=== PATIENT | male | born 1950 | race Caucasian/White ===

== ENCOUNTER → 2017-01-09 | Outpatient (CLI) | payer OTHER ==
[~2017-01-09] MED LIST: ACET-1256 PO; ADVIN50050 INH; ALBUAER INH; ASCO10003 PO; ATOR-24 PO; CLB/200 PO; FERR325T5 PO; GABA-113 PO; HYDR100T12 PO; HYDR8TAB29 PO; METO-217 PO; METO2.5T PO; MULT-506 PO; MYR25 PO; NIFE60TA57 PO; RANI150T3 PO; ROPI2TAB6 PO; RXC5 PO; SERT-234 PO; TADA10TA PO; ZOLP5TAB PO
--- NOTE | 2017-01-09 16:55 | DIAGNOSTIC IMAGING REPORT ---
CHEST 2 VIEWS ROUTINE CLINICAL HISTORY: PRE OP; PT WENT TO LAB FIRST; PLEASE SEND TO [facility] NEXT preoperative evaluation COMPARISON STUDY: None FINDINGS: Platelike atelectasis left base. Lungs otherwise appear clear. Diaphragms smooth. No evidence for cardiac enlargement. IMPRESSION: Platelike atelectasis left base. Otherwise negative study Electronically signed by: Estuardo Hernandez M.D. 01/09/2017 4:54 PM Dictated Date/Time: 01/09/2017 4:53 PM
== END | disposition home or self-care (01) ==
LOC: C.CPL 15:46
PROVIDERS: ATTEND Physician Assistant
DX: M51.26 Other intervertebral disc displacement, lumbar region (principal)

== ENCOUNTER 2017-01-18 07:56 | Inpatient (IN) | payer OTHER ==
[2017-01-03 11:10] VITALS: BMI 40.0
[2017-01-09 16:30] LABS: BASO % 0.3 %; BASO ABS # 0.02 K/uL (0-0.2); COMPLETE YES; EOS % 3.6 %; HEMATOCRIT 43.8 % (42-52); IG% 0.3 %; LYMPH ABS # 1.32 K/uL (1.2-3.4); MEAN CELL VOLUME 85.9 fL (80-100); MEAN CORPUSCULAR HEMOGLOBIN 28.4 pg (25-34); MEAN CORPUSCULAR HGB CONC 33.1 g/dl (32-36); MEAN PLATELET VOLUME 8.9 fL (7.4-10.4); MONO % 13.2 %; NEUT % 63.6 %; PLATELET COUNT 232 K/uL (130-400); WHITE BLOOD COUNT 6.95 K/uL (4.8-10.8)
[2017-01-09 17:04] LABS: BUN/CREATININE RATIO 21.5 (10-20); CALCIUM 10.6 mg/dl (8.5-10.1); CREATININE 0.91 mg/dl (0.60-1.40); POTASSIUM 4.2 mmol/L (3.5-5.1)
[2017-01-09 18:04] LABS: URINE APPEARANCE CLEAR (CLEAR); URINE BILIRUBIN NEG (NEG); URINE COLOR DK YELLOW; URINE NITRITE NEG (NEG); URINE SPECIFIC GRAVITY 1.029 (1.000-1.030); UROBILINOGEN NEG (NEG)
[2017-01-09 18:08] LABS: MANUAL MICROSCOPIC REQUIRED? NO; REVIEW REQ? NO
[~2017-01-18] VITALS: Ht 165.1 cm; Wt 109.1 kg
[2017-01-18] VITALS (9 sets, daily range): BP systolic 115–196; BP diastolic 64–81; PULSE 52–63; TEMP 36.3–36.6; O2SAT 94–97; Ht 165.1 cm; Wt 109.1 kg
--- NOTE | 2017-01-18 07:24 | History & Physical Bridge Note ---
H&P Re-Evaluation Bridge Note: I have examined the patient, reviewed the History & Physical and in the interval since the performance of the History & Physical I have noted the following changes of clinical significance: No changes noted
[~2017-01-18 07:56] MED LIST changes: +CEFAZOLIN 2000 MG/60 ML D5W IV SCH; +LACTATED RINGER'S 1000ML 1,000 ML IV SCH; -RXC5 PO
[2017-01-18] MEDS ORDERED: ROCURONIUM BROMIDE 10 MG/ML 5 ML VIAL ONE ×2 (09:43→11:15)
[2017-01-18] MEDS ORDERED: MIDAZOLAM HCL 1 MG/ML 2ML VIAL ONE (09:43)
[2017-01-18] MEDS ORDERED: PROPOFOL IV EMULSION 10 MG/ML 20 ML VIAL IV ONE (09:43)
[2017-01-18] MEDS ORDERED: LIDOCAINE HCL 2% 2 ML VIAL (20MG/ML) ONE (09:43)
[2017-01-18] MEDS ORDERED: FENTANYL CITRATE INJ 50 MCG/1 ML 2 ML VIAL ONE ×2 (09:43→11:14)
[2017-01-18] MEDS ORDERED: HYDROmorphone INJ 1 MG/ML SYR IV PRN (09:45)
[2017-01-18] MEDS ORDERED: PROMETHAZINE HCL INJ 6.25 MG in SODIUM CHLORIDE 0.9% 50ML 50 ML IV PRN (09:45)
[2017-01-18] MEDS ORDERED: ONDANSETRON INJ 2 MG/ML 2 ML VIAL IV PRN ×2 (09:45→13:15)
[2017-01-18] MEDS ORDERED: EpHEDrine SULFATE INJ 50 MG/ML AMP IV PRN (09:45)
[2017-01-18] MEDS ORDERED: ATROPINE SULFATE 0.1 MG/ML 5ML SYR IV PRN (09:45)
--- NOTE | 2017-01-18 10:00 | History and Physical ---
History & Physical Date January 18, 2017. Chief Complaint back and leg pain History of Present Illness The patient is a 66 year old male with complaints of Additional History Hepatic Disease: No Endocrine Disorder: No Kidney Disease: No Hypertension: No Heart Disease: No Bleeding Tendencies: No Infectious Diseases: No Allergies Coded Allergies: Losartan (Verified Allergy, Mild, RASH, 01/18/17) Lisinopril (Unverified Allergy, Unknown, UNKNOWN, 01/18/17) Home Medications Scheduled Acetaminophen (Tylenol), 500 MG PO QID Ascorbic Acid (Vitamin C), 1 TAB PO QAM Atorvastatin (Lipitor), 40 MG PO QPM Celecoxib (CeleBREX), 200 MG PO QPM Ferrous Sulfate (Ferrous Sulfate), 1 TAB PO UD Fluticasone Prop/Salmeterol (Advair Diskus 500-50 Mcg/Dose), 1 PUFF INH BID Gabapentin (Neurontin), 300 MG PO TID Hydralazine Hcl (Apresoline), 100 MG PO QAM Hydromorphone Hcl (Dilaudid), 1 TAB PO QID Metoprolol Succinate (Toprol Xl), 50 MG PO HS Mirabegron (Myrbetriq Er), 25 MG PO QAM Multivitamin (Multivitamin), 1 TAB PO QAM Nifedipine Ext Rel (Procardia Xl Ext Rel), 60 MG PO QAM Ranitidine Hcl (Zantac), 150 MG PO HS Ropinirole (Requip), 1 MG PO TID Sertraline (Zoloft), 150 MG PO QAM Tadalafil (Cialis), 10 MG PO UD Scheduled PRN Albuterol (Proventil Hfa), 2 PUFFS INH Q4 PRN for Shortness of Breath Metolazone (Zaroxolyn), 2.5 MG PO MON, WED, FRI PRN for EDEMA Zolpidem Tartrate (Ambien), 1 TAB PO HS PRN for Sleep Physical Examination Skin: warm/dry, no rash Eyes: normal inspection, EOMI, sclerae normal ENT: normal ENT inspection, pharynx normal Head: normocephalic, atraumatic Neck: supple, no adenopathy, trachea midline Respiratory/Chest: lungs clear, normal breath sounds, no respiratory distress Cardiovascular: regular rate, rhythm, no edema, no murmur Abdomen / GI: normal bowel sounds, non tender Back: normal inspection Extremities: normal inspection, normal range of motion Neurologic/Psych: no motor/sensory deficits, alert, normal reflexes, oriented x 3 Diagnosis lumbar stenosis Plan of Treatment decompression fusion L3-L5
[2017-01-18] MEDS ORDERED: BUPIVACAINE/EPINEPHRINE 0.5% MPF 1:200,000 30 ML VIAL ONE (10:24)
[2017-01-18] MEDS ORDERED: BACITRACIN 50000 UNIT VIAL ONE (10:24)
[2017-01-18] MEDS ORDERED: METOPROLOL TARTRATE 100 MG TAB PO ONE (10:30)
[2017-01-18] MEDS ORDERED: DEXAMETHASONE SOD INJ 4 MG/ML VIAL ONE (11:15)
[2017-01-18] MEDS ORDERED: GLYCOPYRROLATE INJ 0.2 MG/ML VIAL ONE (11:15)
[2017-01-18] MEDS ORDERED: NEOSTIGMINE METHYLSULFATE 1 MG/ML 10ML VIAL ONE (11:15)
[2017-01-18] MEDS ORDERED: ONDANSETRON INJ 2 MG/ML 2 ML VIAL ONE (11:15)
[2017-01-18] MEDS ORDERED: FLOSEAL HEMOSTATIC MATRIX 10ML TOP ONE (12:57)
[2017-01-18] MEDS ORDERED: SODIUM CHLORIDE 0.9% 1000ML 1,000 ML IV SCH (13:03)
--- NOTE | 2017-01-18 13:03 | DIAGNOSTIC IMAGING REPORT ---
INTRAOPERATIVE LUMBAR SPINE 2 VIEWS CLINICAL HISTORY: L3-L5 LUMBAR DECOMPRESSION/FUSION/INTERBODY COMPARISON STUDY: No previous studies for comparison. FINDINGS: 2 intraoperative fluoroscopic spot views are provided for interpretation. 24 seconds of fluoroscopic time was utilized. 2 images reveal pedicle screws the L3, L4, and L5 levels with adjoining spinal rods. IMPRESSION: L3-L5 posterior pedicle screw spinal fixation. Electronically signed by: Clark Dunham M.D. 01/18/2017 1:02 PM Dictated Date/Time: 01/18/2017 1:01 PM
--- NOTE | 2017-01-18 13:03 | [facility] Post Operative Brief Note ---
Immediate Operative Summary Operative Date January 18, 2017. Pre-Operative Diagnosis Lumbar Stenosis Post-Operative Diagnosis Lumbar Stenosis Procedure(s) Performed L3-L5 Lumbar Laminectomy and Decompression, Posterior Spinal Fusion L3-L5, Bone Morphogenetic Protein;[facility] of [place] Surgeon Dr. Almaraz Dairy Technologist Surgeon(s) Lise Dugan PA-C Estimated Blood Loss 800 mL Findings stenosis Specimens None per Surgeon
[2017-01-18] MEDS ORDERED: EpHEDrine SULFATE INJ 50 MG/ML AMP ONE (13:07)
[2017-01-18] MEDS ORDERED: EpHEDrine SULFATE 50MG/5ML SYR ONE (13:07)
[2017-01-18] MEDS ORDERED: HYDROmorphone INJ 2 MG/ML SYR/VIAL ONE (13:10)
[2017-01-18] MEDS ORDERED: ACETAMINOPHEN 500 MG TAB PO PRN (13:15)
[2017-01-18] MEDS ORDERED: METOCLOPRAMIDE HCL INJ 5 MG/ML 2 ML VIAL IV PRN (13:15)
[2017-01-18] MEDS ORDERED: PROMETHAZINE HCL INJ 12.5 MG in SODIUM CHLORIDE 0.9% 50ML 50 ML IV PRN (13:15)
[2017-01-18] MEDS ORDERED: NALOXONE HCL 0.4 MG/1 ML VIAL/CARP IV PRN ×2 (13:15)
[2017-01-18] MEDS ORDERED: hydrOXYzine HCL 25 MG TAB PO PRN (13:15)
[2017-01-18] MEDS ORDERED: ALUMINUM/MAGNESIUM SUSP 30 ML UDC PO PRN (13:15)
[2017-01-18] MEDS ORDERED: ALBUTEROL HFA 8 GM INHALER INH PRN (13:15)
[2017-01-18] MEDS ORDERED: SOD PHOSPHATE/SOD BIPHOSPHATE ENEMA 132 ML BTL PR PRN (13:15)
[2017-01-18] MEDS ORDERED: LORAZEPAM 0.5 MG TAB PO PRN (13:15)
[2017-01-18] MEDS ORDERED: MAGNESIUM HYDROXIDE SUSP 30 ML UDC PO PRN (13:15)
[2017-01-18] MEDS ORDERED: ZOLPIDEM TARTRATE 5 MG TAB PO PRN (13:15)
[2017-01-18] MEDS ORDERED: DC PCA PRN (13:15)
[2017-01-18] MEDS ORDERED: DO NOT ADMINISTER FLU VACCINE PRN ×3 (13:15)
[2017-01-18] MEDS ORDERED: ACETAMINOPHEN IV 100 ML IV PRN (13:15)
[2017-01-18] MEDS ORDERED: BISACODYL 10 MG SUPP PR PRN (13:15)
[2017-01-18] MEDS ORDERED: DO NOT ADMINISTER PNEUMOCOCCAL VACCINE PRN ×2 (13:15)
[2017-01-18] MEDS ORDERED: FAMOTIDINE 20 MG TAB PO PRN (13:15)
[2017-01-18] MEDS ORDERED: LORAZEPAM INJ 0.5 MG in SYRINGE 0 ML IV PRN (13:15)
[2017-01-18] MEDS ORDERED: HYDROmorphone HCL 0.5MG/ML 50 ML CASSETTE ONE (13:29)
[2017-01-18] MEDS: FENTANYL CITRATE INJ 50 MCG/1 ML 2 ML VIAL IV PRN ×4 (13:35→13:50)
--- NOTE | 2017-01-18 14:15 | Anesthesiology Progress Note ---
Anesthesia Post Op Note Date & Time January 18, 2017 at 14:15 Vital Signs Pain Intensity: 6 Vital Signs Past 12 Hours Date Time Temp Pulse Resp B/P Pulse Ox O2 Delivery O2 Flow Rate FiO2 01/18/17 14:05 36.5 50 14 135/70 92 Nasal Cannula 4 01/18/17 13:55 52 17 150/66 96 Nasal Cannula 4 01/18/17 13:45 54 16 148/82 97 Mask 10 01/18/17 13:35 67 17 155/77 97 Mask 10 01/18/17 13:25 37.1 62 22 159/80 97 Mask 10 01/18/17 08:26 36.6 63 20 196/81 95 Room Air Notes Mental Status: alert / awake / arousable, participated in evaluation Pt Amnestic to Procedure: Yes Nausea / Vomiting: adequately controlled Pain: adequately controlled Airway Patency, RR, SpO2: stable & adequate BP & HR: stable & adequate Hydration State: stable & adequate Anesthetic Complications: no major complications apparent
--- NOTE | 2017-01-18 15:22 | OPERATIVE REPORT ---
DATE OF OPERATION: 01/18/2017 PREOPERATIVE DIAGNOSIS: Spinal stenosis, herniated nucleus pulposus. POSTOPERATIVE DIAGNOSIS: Same. PROCEDURE PERFORMED: 1. Lumbar decompression, medial facetectomy, excision of herniated fragment L2-L3, L3-L4, L4-L5. 2. Posterior spinal fusion L3-L4, L4-L5. 3. Placement posterior segmental instrumentation using Orthros rods and screws as well as a crosslink L3-L4, L4-L5. 4. Placement of locally harvested morselized autograft posterior gutters. 5. Placement of Infuse collagen sponge combined with Mastergraft in posterior gutters. SURGEON: Dr. Cisco Almaraz. SENIOR MORTGAGE UNDERWRITER: Lise Dugan PA-C. Due to the complex nature of the procedure, the entire surgery was performed with the prosthetic assistant of Lise Dugan PA-C. The merchandising assistant, under direct supervision, was involved in the actual performance of all aspects of the surgical procedure including hemostasis, tissue retraction and incision, instrument management, patient positioning, and wound closure. ANESTHESIA: General. DISPOSITION: The patient awakened and taken to PACU in stable condition. HISTORY OF PATIENT'S PROBLEMS: A 66-year-old male who presents with above-mentioned diagnosis. After failing an extensive course of nonoperative care, elected to undergo the above-mentioned procedure. Risks, benefits, pros, cons, and alternatives were outlined in detail preoperatively. OPERATION AND FINDINGS: PROCEDURE: The patient was met with preoperatively, the case discussed and all questions were addressed. At that point the patient was taken back to the operative suite and after undergoing successful general intubation by the department of anesthesia was placed in prone position on Ahmet table atop Manuel frame. All bony prominences were well padded and the eyes were inspected to ensure there was no external pressure placed upon them. At this point, lumbar spine was prepped and draped in the normal sterile fashion. Sharp dissection with the assistance of Bovie cautery performed down to and exposing the lamina and transverse processes of L3, L4, L5 bilaterally. From a caudal to cephalad fashion, complete laminectomy of L4, 3 partial laminectomy of L2 was performed addressing severe lateral recess stenosis as well as a massive disc herniation involving the foramina of L3-L4 on the left and extending cephalad. After the fragments were removed and decompression was performed, pedicle screws were then placed in L3, L4, L5 bilaterally with assistance of fluoroscopy and appropriate size cee locked into position. A crosslink was locked into position. Transverse processes of L3, L4, L5 burred to subcortical bleeding bone. Infuse collagen sponge combined with Mastergraft and locally harvested morselized autograft was placed in the posterior gutters. A 7 flat ROCKY drain was inserted. Incision was closed with 1-0 Vicryl in the fascia, 2-0 Vicryl subcutaneously, 4-0 Monocryl for final skin closure. Steri-Strips and sterile dressing placed. The patient was awakened and taken to PACU in stable condition. I attest to the content of the Intraoperative Record and any orders documented therein. Any exceptio ns are noted below.
[2017-01-18] MEDS: HYDROmorphone HCL 0.5MG/ML 50 ML CASSETTE IV PRN ×2 (15:54→22:58)
[2017-01-18] MEDS: GABAPENTIN 300 MG CAP PO SCH ×2 (17:12→22:01)
[2017-01-18] MEDS: ROPINIROLE HCL 1 MG TAB PO SCH ×2 (17:12→22:00)
[2017-01-18] MEDS: DEXAMETHASONE INJ 6 MG in SYRINGE 0 ML IV SCH (17:13)
[2017-01-18] MEDS: SODIUM CHLORIDE 0.9% 1000ML 1,000 ML IV SCH ×2 (17:18→21:55)
[2017-01-18] MEDS: CEFAZOLIN IV 2,000 MG in DEXTROSE 5% 50ML 50 ML IV SCH (17:22)
[2017-01-18] MEDS: METOPROLOL SUCC 50MG EXT REL TAB PO SCH (21:00)
[2017-01-18] MEDS: FLUTICASONE/SALMETEROL (ADVAIR) 500/50 INH 14 PUFF INH SCH (21:55)
[2017-01-18] MEDS: RANITIDINE HCL 150 MG TAB PO SCH (22:00)
[2017-01-18] MEDS: DOCUSATE SODIUM/SENNA 50/8.6MG TAB PO SCH (22:00)
[2017-01-18] MEDS: ATORVASTATIN 40 MG TAB PO SCH (22:01)
[2017-01-19] VITALS (7 sets, daily range): BP systolic 107–172; BP diastolic 56–78; PULSE 60–79; TEMP 36.5–37; O2SAT 91–96
[2017-01-19] MEDS: DEXAMETHASONE INJ 6 MG in SYRINGE 0 ML IV SCH ×2 (01:07→08:34)
[2017-01-19] MEDS: CEFAZOLIN IV 2,000 MG in DEXTROSE 5% 50ML 50 ML IV SCH (02:09)
[2017-01-19] MEDS ORDERED: NURSING VERBAL MED ORDER ONE (06:15)
[2017-01-19 06:16] LABS: COMPLETE YES; HEMATOCRIT 33.9 % (42-52); IG% 0.2 %; LYMPH % 4.6 %; LYMPH ABS # 0.58 K/uL (1.2-3.4); MEAN CELL VOLUME 86.9 fL (80-100); MEAN CORPUSCULAR HEMOGLOBIN 27.9 pg (25-34); MEAN CORPUSCULAR HGB CONC 32.2 g/dl (32-36); MONO % 10.2 %; PLATELET COUNT 198 K/uL (130-400); WHITE BLOOD COUNT 12.52 K/uL (4.8-10.8)
[2017-01-19 06:47] LABS: BUN/CREATININE RATIO 18.5 (10-20); CREATININE 1.1 mg/dl (0.60-1.40); POTASSIUM 4.3 mmol/L (3.5-5.1)
[2017-01-19] MEDS: OXYCODONE HCL IR 5 MG TAB (IMMEDIATE RELEASE) PO PRN ×4 (07:13→22:43)
--- NOTE | 2017-01-19 08:12 | PROGRESS NOTE ---
DATE: 01/19/2017 DATE: 01/19/2017. SUBJECTIVE: Postop day #1. Back pain controlled. Leg pain markedly improved. Vital signs stable. T-max 36.6. ROCKY drained 130 mL. Hematocrit this a.m. is 33.9. OBJECTIVE: On exam, he has good strength to testing, ambulating well, markedly improved. ASSESSMENT: Status post lumbar decompression and fusion. PLAN: At this time, will continue with physical therapy, advance his bowel regimen and hopefully discharge home in the next few days.
--- NOTE | 2017-01-19 08:16 | Anesthesiology Progress Note ---
Anesthesia Post Op Note Date & Time January 19, 2017 at 08:16 Vital Signs Pain Intensity: 6.0 Vital Signs Past 12 Hours Date Time Temp Pulse Resp B/P Pulse Ox O2 Delivery O2 Flow Rate FiO2 01/19/17 07:00 36.6 61 16 107/58 94 Room Air 01/19/17 03:48 36.6 65 17 147/72 94 Nasal Cannula 2.0 01/19/17 00:23 Nasal Cannula 01/18/17 23:07 36.4 61 16 129/68 94 Nasal Cannula 2.0 01/18/17 21:58 58 126/70 Notes Mental Status: alert / awake / arousable, participated in evaluation Pt Amnestic to Procedure: Yes Nausea / Vomiting: adequately controlled Pain: adequately controlled Airway Patency, RR, SpO2: stable & adequate BP & HR: stable & adequate Hydration State: stable & adequate Anesthetic Complications: no major complications apparent
[2017-01-19] MEDS: SERTRALINE HCL 100 MG TAB PO SCH (08:33)
[2017-01-19] MEDS: ROPINIROLE HCL 1 MG TAB PO SCH ×3 (08:34→20:55)
[2017-01-19] MEDS: FLUTICASONE/SALMETEROL (ADVAIR) 500/50 INH 14 PUFF INH SCH ×2 (08:34→20:55)
[2017-01-19] MEDS: NIFEdipine 30 MG CR TAB PO SCH (08:35)
[2017-01-19] MEDS: GABAPENTIN 300 MG CAP PO SCH ×3 (08:35→20:55)
[2017-01-19] MEDS: MIRABEGRON ER 25 MG TAB PO SCH (08:35)
[2017-01-19] MEDS: HYDROmorphone INJ 1 MG/ML SYR IV PRN ×2 (10:39→18:39)
--- NOTE | 2017-01-19 10:43 | Medical Consult ---
Consultation Date of Consultation: January 19, 2017. Attending Physician: Cisco Almaraz D.O. Reason for Consultation: postop medical management History of Present Illness Patient seen and examined in room 316 after undergoing lumbar decompression/ fusion yesterday by Dr. Almaraz. Back pain is controlled. He reports feeling better than he has in years. Has ambulated in the hallway with nursing and participated in PT. Tolerating diet without issues. No BM yet after surgery. Mendez catheter remains in place. Denies fever, chills, dizziness, cough, SOB, chest pain, abdominal pain, N/V, LE pain, numbness, weakness. Past Medical/Surgical History Medical Problems: (1) ? Hx [place] Permanent Comment: age 48 per patient, in relation to GIB, no cath done. 2007 stress echo negative. Status: Chronic (2) ? Hx TIA/stroke w/o residual deficit Permanent Comment: approximately 2006 per per patient Status: Chronic (3) Asthma Status: Chronic (4) Depression Status: Chronic (5) Diverticulosis Status: Chronic (6) Dyslipidemia Status: Chronic (7) Hypertension Status: Chronic (8) Valvular heart disease Permanent Comment: 01/2008 echo- LV EF 55-60%, LVH, minimal , mild AI, mild MR , mild TR Status: Chronic Surgical Problems: (1) H/O colonoscopy Permanent Comment: 11/2015 diverticulosis Status: Chronic Family History FH: CVA (cerebrovascular accident) MOTHER Social History Smoking Status: Never Smoker Alcohol Use: none Drug Use: none Marital Status: Housing Status: lives with significant other 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) Allergies Coded Allergies: Losartan (Verified Allergy, Mild, RASH, 01/18/17) Lisinopril (Unverified Allergy, Unknown, UNKNOWN, 01/18/17) Home Medications Active Reported Neurontin (Gabapentin) 300 Mg Cap 300 Mg PO TID Myrbetriq Er (Mirabegron) 25 Mg Tab 25 Mg PO QAM Toprol Xl (Metoprolol Succinate) 50 Mg Tabcr 50 Mg PO HS Apresoline (Hydralazine Hcl) 100 Mg Tab 100 Mg PO QAM Tylenol (Acetaminophen) 500 Mg Tab 500 Mg PO QID Dilaudid (Hydromorphone Hcl) 8 Mg Tab 1 Tab PO QID Zoloft (Sertraline HCl) 100 Mg Tab 150 Mg PO QAM CeleBREX (Celecoxib) 200 Mg Cap 200 Mg PO QPM Ferrous Sulfate 325 Mg Tab 1 Tab PO UD Multivitamin (Multivitamins) Tab 1 Tab PO QAM Vitamin C (Ascorbic Acid) 1,000 Mg Tab 1 Tab PO QAM Zaroxolyn (Metolazone) 2.5 Mg Tab 2.5 Mg PO MON, WED, FRI Lipitor (Atorvastatin Calcium) 40 Mg Tab 40 Mg PO QPM Zantac (Ranitidine HCl) 150 Mg Tab 150 Mg PO HS Cialis (Tadalafil) 10 Mg Tab 10 Mg PO UD Procardia Xl Ext Rel (Nifedipine) 60 Mg Tabcr 60 Mg PO QAM Requip (Ropinirole HCl) 2 Mg Tab 1 Mg PO TID Proventil Hfa (Albuterol) Aers 2 Puffs INH Q4 PRN Ambien (Zolpidem Tartrate) 5 Mg Tab 1 Tab PO HS PRN Advair Diskus 500-50 Mcg/Dose (Fluticasone Prop/Salmeterol) 14 Puff/1 Inhaler Aerp 1 Puff INH BID Current Inpatient Medications Current Inpatient Medications Medications (Trade) Dose Ordered Sig/Skyla Route Start Time Stop Time Status Last Admin Dose Admin Promethazine HCl/ Sodium Chloride (Phenergan Inj/ Nss 50ml) 50.5 ml @ 202 mls/hr Q6H PRN IV 01/18/17 13:15 02/17/17 13:14 Ondansetron HCl (Zofran Inj) 4 mg Q6H PRN IV 01/18/17 13:15 02/17/17 13:14 Metoclopramide HCl (Reglan Inj) 10 mg Q6H PRN IV 01/18/17 13:15 02/17/17 13:14 Lorazepam 0.5 mg 0.5 mg Q8H PRN PO 01/18/17 13:15 02/17/17 13:14 Lorazepam/Syringe (Ativan Inj/ Syringe) 0.25 ml @ 1 mls/min Q8H PRN IV 01/18/17 13:15 02/17/17 13:14 Pneumococcal Polysaccharide Vaccine 1 ea PRN PRN N/A 01/18/17 13:15 02/17/17 13:14 Influenza Virus Vacc Triv Types A&B 1 ea PRN PRN N/A 01/18/17 13:15 02/17/17 13:14 Polyethylene (Miralax Powder Packet) 17 gm Q6 PO 01/20/17 06:00 02/19/17 05:59 Bisacodyl (Dulcolax Supp) 10 mg DAILY PRN ND 01/18/17 13:15 02/17/17 13:14 Magnesium Hydroxide (Milk Of Magnesia Susp) 30 ml DAILY PRN PO 01/18/17 13:15 02/17/17 13:14 Hydromorphone HCl (Dilaudid Inj) 0.5-1mg prn moder... Q3H PRN IV 01/19/17 06:00 02/02/17 05:59 Oxycodone HCl (Roxicodone Immediate Rel Tab) 5-10mg prn moderate to sev... Q4H PRN PO 01/19/17 06:00 02/02/17 05:59 01/19/17 07:13 10 MG Acetaminophen 1000 mg 1,000 mg Q8H PRN PO 01/18/17 13:15 02/17/17 13:14 Acetaminophen (Ofirmev Iv) 100 ml @ 400 mls/hr Q8H PRN IV 01/18/17 13:15 02/17/17 13:14 Naloxone HCl (Narcan Inj) 0.1 mg Q5M PRN IV 01/18/17 13:15 02/17/17 13:14 Senna/Docusate Sodium (Senokot S Tab) 2 tab HS PO 01/18/17 21:00 02/17/17 20:59 01/18/17 22:00 2 TAB Sodium Biphosphate/ Sodium Phosphate (Fleet Enema) 132 ml ONE PRN ND 01/18/17 13:15 02/17/17 13:14 Hydroxyzine HCl (Vistaril Tab) 25 mg Q8H PRN PO 01/18/17 13:15 02/17/17 13:14 Al Hydroxide/Mg Hydroxide (Maalox Susp) 30 ml Q6H PRN PO 01/18/17 13:15 02/17/17 13:14 Famotidine (Pepcid Tab) 20 mg Q12 PRN PO 01/18/17 13:15 02/17/17 13:14 Diphenhydramine HCl (Benadryl Cap) 25 mg Q6H PRN PO 01/18/17 13:15 02/17/17 13:14 Albuterol (Ventolin Hfa Inhaler) 2 puffs Q4 PRN INH 01/18/17 13:15 02/17/17 13:14 Atorvastatin Calcium (Lipitor Tab) 40 mg QPM PO 01/18/17 21:00 02/17/17 20:59 01/18/17 22:01 40 MG Salmeterol Xinafoate/ Fluticasone (Advair Diskus 500/50 Inh) 1 puff BID INH 01/18/17 21:00 02/17/17 20:59 01/19/17 08:34 1 PUFF Gabapentin (Neurontin Cap) 300 mg TID PO 01/18/17 14:00 02/17/17 13:59 01/19/17 08:35 300 MG Hydralazine HCl (Apresoline Tab) 100 mg QAM PO 01/19/17 09:00 02/18/17 08:59 01/19/17 08:35 100 MG Metoprolol Succinate (Toprol Xl Tab) 50 mg HS PO 01/18/17 21:00 02/17/17 20:59 Mirabegron (Myrbetriq Er) 25 mg QAM PO 01/19/17 09:00 02/18/17 08:59 01/19/17 08:35 25 MG Nifedipine (Procardia Xl Tab) 60 mg QAM PO 01/19/17 09:00 02/18/17 08:59 01/19/17 08:35 60 MG Ranitidine HCl (zANTac TAB) 150 mg HS PO 01/18/17 21:00 02/17/17 20:59 01/18/17 22:00 150 MG Ropinirole HCl (Requip Tab) 1 mg TID PO 01/18/17 14:00 02/17/17 13:59 01/19/17 08:34 1 MG Sertraline HCl (Zoloft Tab) 150 mg QAM PO 01/19/17 09:00 02/18/17 08:59 01/19/17 08:33 150 MG Zolpidem Tartrate (Ambien Tab) 5 mg HS PRN PO 01/18/17 13:15 02/17/17 13:14 Review of Systems Ten systems reviewed and negative except as noted in HPI. Physical Exam Date Time Temp Pulse Resp B/P Pulse Ox O2 Delivery O2 Flow Rate FiO2 01/19/17 08:35 60 145/72 01/19/17 07:13 Room Air 01/19/17 07:00 36.6 61 16 107/58 94 Room Air 01/19/17 03:48 36.6 65 17 147/72 94 Nasal Cannula 2.0 01/19/17 00:23 Nasal Cannula 01/18/17 23:07 36.4 61 16 129/68 94 Nasal Cannula 2.0 01/18/17 21:58 58 126/70 01/18/17 19:28 36.4 57 18 131/76 96 Nasal Cannula 2.0 01/18/17 18:40 36.6 55 20 115/64 95 Nasal Cannula 2.0 01/18/17 16:58 36.3 52 18 130/73 95 Nasal Cannula 4.0 01/18/17 16:29 36.5 55 18 140/72 97 Nasal Cannula 4.0 01/18/17 16:00 96 Nasal Cannula 2.0 01/18/17 16:00 96 Nasal Cannula 2.0 01/18/17 15:52 36.4 59 16 153/69 96 Nasal Cannula 2.0 01/18/17 15:45 57 20 163/67 96 Nasal Cannula 4 01/18/17 15:30 53 18 164/72 95 Nasal Cannula 4 01/18/17 15:15 53 10 165/72 96 Nasal Cannula 4 01/18/17 15:00 52 10 163/77 96 Nasal Cannula 4 01/18/17 14:45 52 22 146/70 95 Nasal Cannula 4 01/18/17 14:30 48 10 129/62 96 Nasal Cannula 4 01/18/17 14:15 48 10 129/64 95 Nasal Cannula 4 01/18/17 14:05 36.5 50 14 135/70 92 Nasal Cannula 4 01/18/17 13:55 52 17 150/66 96 Nasal Cannula 4 01/18/17 13:45 54 16 148/82 97 Mask 10 01/18/17 13:35 67 17 155/77 97 Mask 10 01/18/17 13:25 37.1 62 22 159/80 97 Mask 10 General Appearance: WD/WN, no apparent distress Head: normocephalic, atraumatic Eyes: normal inspection, sclerae normal ENT: normal ENT inspection, + pertinent finding (right side hearing aid) Neck: supple, trachea midline Respiratory/Chest: lungs clear, normal breath sounds, no respiratory distress, no accessory muscle use Cardiovascular: regular rate, rhythm, + systolic murmur (grade II at RSB) Abdomen/GI: normal bowel sounds, non tender, soft Genitourinary - Male: + pertinent finding (mendez catheter draining clear yellow urine) Back: + pertinent finding (s/p lumbar decompression/ fusion. drain in place with sanguinous drainage) Extremities/Musculoskelatal: no calf tenderness, no pedal edema Neurologic/Psych: alert, normal mood/affect, oriented x 3, + pertinent finding (no focal deficit on gross examination) Skin: normal color, warm/dry Laboratory Results Last 24 Hours Test 01/19/17 05:28 White Blood Count 12.52 K/uL Red Blood Count 3.90 M/uL Hemoglobin 10.9 g/dL Hematocrit 33.9 % Mean Corpuscular Volume 86.9 fL Mean Corpuscular Hemoglobin 27.9 pg Mean Corpuscular Hemoglobin Concent 32.2 g/dl Platelet Count 198 K/uL Mean Platelet Volume 9.0 fL Neutrophils (%) (Auto) 85.0 % Lymphocytes (%) (Auto) 4.6 % Monocytes (%) (Auto) 10.2 % Eosinophils (%) (Auto) 0.0 % Basophils (%) (Auto) 0.0 % Neutrophils # (Auto) 10.63 K/uL Lymphocytes # (Auto) 0.58 K/uL Monocytes # (Auto) 1.28 K/uL Eosinophils # (Auto) 0.00 K/uL Basophils # (Auto) 0.00 K/uL RDW Standard Deviation 45.4 fL RDW Coefficient of Variation 14.2 % Immature Granulocyte % (Auto) 0.2 % Immature Granulocyte # (Auto) 0.03 K/uL Sodium Level 139 mmol/L Potassium Level 4.3 mmol/L Chloride Level 103 mmol/L Carbon Dioxide Level 28 mmol/L Anion Gap 8.0 mmol/L Blood Urea Nitrogen 20 mg/dl Creatinine 1.10 mg/dl Est Creatinine Clear Calc Drug Dose 76.3 ml/min Estimated GFR () 81.2 Estimated GFR (Non- 70.1 BUN/Creatinine Ratio 18.5 Random Glucose 159 mg/dl Calcium Level 9.0 mg/dl Assessment & Plan S/P LUMBAR DECOMPRESSION/ FUSION POD #[address] Almaraz Doing well postoperatively Pain control, wound care, activity per ortho Bowel regimen per ortho- on Senokot, Miralax to start tomorrow am, PRN dulcolax suppository PT/ OT ACUTE BLOOD LOSS ANEMIA Hg 14.5 -> 10.9 Due to surgical blood loss; EBL 800 mL Asymptomatic Monitor daily H/H Would transfuse for Hg < 8 HYPERTENSION BP is stable Continue hydralazine, metoprolol succinate, nifedipine Agree with holding metolazone to prevent dehydration ASTHMA Stable, not in exacerbation Continue home inhalers DYSLIPIDEMIA Continue statin DEPRESSION Stable, continue Zoloft DVT PROPHYLAXIS Per ortho DISPOSITION Per ortho Patient follows with Dr. Dawkins for primary care Patient seen in collaboration with Dr. Mars. Please see her addendum.
--- NOTE | 2017-01-19 13:13 | Progress Note ---
Progress Note Date of Service January 19, 2017. Progress Note Patient was seen and evaluated with NEETU Nathan. Patient is status post lumbar decompression. Patient s pain is controlled. He is ambulating with PT too. Denies any chest pain, fever, chills, nausea, vomiting. EXAM: Gen: AAOX3, no distress Lungs: AEBE, no wheezing, rhonchi Heart: S1, S2 normal, Back: S/P Surgery, Drain + Ext: No edema ASSESSMENT AND PLAN S/P LUMBAR DECOMPRESSION/ FUSION POD #[address] Almaraz Doing well postoperatively -Pain control, wound care, activity per ortho -Bowel regimen per ortho- on Senokot, Miralax to start tomorrow am, PRN dulcolax suppository -PT/ OT ACUTE BLOOD LOSS ANEMIA, Post operative status Hg 14.5 -> 10.9 -Due to surgical blood loss; EBL 800 mL -Asymptomatic -Monitor daily H/H -Would transfuse for Hg < 8 HYPERTENSION BP is stable -Continue hydralazine, metoprolol succinate, nifedipine -Agree with holding metolazone to prevent dehydration ASTHMA Stable, not in exacerbation -Continue home inhalers DYSLIPIDEMIA -Continue statin DEPRESSION -Stable, continue Zoloft DVT PROPHYLAXIS -Per ortho DISPOSITION Per ortho Patient follows with Dr. Dawkins for primary care
[2017-01-19] MEDS: METOPROLOL SUCC 50MG EXT REL TAB PO SCH (20:55)
[2017-01-19] MEDS: ATORVASTATIN 40 MG TAB PO SCH (21:33)
[2017-01-19] MEDS: RANITIDINE HCL 150 MG TAB PO SCH (21:33)
[2017-01-19] MEDS: DOCUSATE SODIUM/SENNA 50/8.6MG TAB PO SCH (21:33)
[2017-01-20] MEDS: OXYCODONE HCL IR 5 MG TAB (IMMEDIATE RELEASE) PO PRN ×5 (02:50→21:03)
[2017-01-20] MEDS ORDERED: POLYETHYLENE (MIRALAX) 17 GM PACK PO SCH (06:00)
[2017-01-20] MEDS ORDERED: NURSING VERBAL MED ORDER ONE (06:15)
[2017-01-20 06:32] VITALS: BP 154/66; PULSE 60; TEMP 36.6; O2SAT 94
[2017-01-20 06:59] VITALS: BP 148/65; PULSE 58; TEMP 36.7; O2SAT 93
[2017-01-20] MEDS: SERTRALINE HCL 100 MG TAB PO SCH (07:18)
[2017-01-20] MEDS: NIFEdipine 30 MG CR TAB PO SCH (07:19)
[2017-01-20] MEDS: GABAPENTIN 300 MG CAP PO SCH ×3 (07:19→21:03)
[2017-01-20] MEDS: ROPINIROLE HCL 1 MG TAB PO SCH ×3 (07:19→21:03)
[2017-01-20] MEDS: MIRABEGRON ER 25 MG TAB PO SCH (07:19)
[2017-01-20] MEDS: FLUTICASONE/SALMETEROL (ADVAIR) 500/50 INH 14 PUFF INH SCH ×2 (07:20→20:55)
[2017-01-20 08:42] VITALS: BP 160/71; O2SAT 95
[2017-01-20] MEDS ORDERED: RXC5 PO (09:39)
--- NOTE | 2017-01-20 09:40 | Discharge Instructions ---
Discharge Instructions Date of Service January 20, 2017. Admission Reason for Admission: Lumbar Spinal Stenosis Discharge Discharge Diagnosis / Problem: stenosis Discharge Goals Goal(s): Improve function Activity Recommendations Activity Limitations: per Instructions/Follow-up section . Instructions / Follow-Up Instructions / Follow-Up ACTIVITY RECOMMENDATIONS: SELF CARE INSTRUCTIONS AFTER THORACIC/LUMBAR FUSIONS 1. You may walk to your tolerance. It is good exercise for your legs and back. Expect some back and intermittent leg aches and pains. 2. You may perform "counter-top" level activities (make a sandwich, olga with a project, etc.). 3. No bending or lifting of more than 10 pounds or back twisting of any nature (roll like a log when turning in bed). 4. You may ride in a car for 20-30 minutes at a time. No driving until after your first visit with your doctor. 5. Frequent changes of position and restricting sitting to 30 minutes at a time will help limit the amount of back spasms and stiffness you may experience. 6. You may discontinue the use of ambulatory aids (cane, crutches, etc.) once your strength and confidence allow. 7. You may rules examiner the shower and let water strike your incision when you arrive home at least once daily. Do not take a tub bath, sit in a hot tub or go into a swimming pool until after your first recheck in the office. SPECIAL CARE INSTRUCTIONS: VERY IMPORTANT TO READ AND REVIEW A. Your surgical incision has been closed with a cosmetic suture under the skin that will dissolve in about 6 weeks. In 14 days, you can use a pair of clean scissors and cut the suture that is left outside of the skin at the ends of your incision. 1. The small skin tapes can be removed 7 days after surgery if they have not fallen off by that point. 2. You may keep the wound open to air as much as possible to promote healing after post-op day number 5 unless told otherwise by your doctor. 3. If you think the wound looks like it is becoming infected (redness or worsening drainage) and/or you are experiencing fever, chill or worsening back pain and muscle spasms, contact the office so that we may evaluate you as soon as possible. B. Complications are uncommon, but please contact us if you have any signs or symptoms of: 1. wound infection (fever higher than 102.5 degrees F, redness, separation of wound, drainage, or increasing pain from the incision) 2. blood clots in legs (pain, swelling, redness and warmth in legs) 3. urinary tract infection (fever higher than 102.5 degrees F, burning upon urination or increased frequency of urination) 4. nerve problems (inability to walk on your toes or heels, numbness, loss of bowel or bladder control) 5. any other symptoms that concern you C. Please call the office at if you have any concerns or questions about your operation or recovery. D. No smoking! Smoking drastically decreases the chance of a solid fusion. E. Do not take any anti-inflammatory medications (Indocin, Advil, Motrin, Aspirin, Naprosyn, etc.) as these may inhibit the chance of a solid fusion. Tylenol is okay to take for pain. MANAGING PAIN AFTER SPINAL SURGERY 1. Narcotic medication is intended for short-term use and will be provided for surgical pain. Surgical pain usually lasts for a period of 4-6 weeks. Narcotic medication includes Percocet, Vicodin, Darvocet, Tylenol #3 or Lortab. 2. Longer-term pain is more appropriately treated with non-narcotic medication such as Tylenol ES. 3. Muscle spasm is not appropriately treated with narcotics. Muscle relaxers such as Soma, Flexeril or Skelaxin can be used along with Tylenol ES. 4. Remember that we all live with some "aches and pains". This is not unusual or uncommon after an injury or as we get older. a. Back pain is expected and may include muscle spasms for 4 to 6 weeks after surgery. The pain should gradually improve. If the pain worsens for no apparent reason, please contact the office. b. Intermittent leg pain may also be experienced and should not be concerned about unless it worsens for no apparent reason. If so, please contact the office. 5. We will provide appropriate medication within the normal guidelines of their prescribed use. We will also be very cautious and aware of potential abuse and extended duration of patients' medication needs. a. Pain medications are for your comfort and to assist with sleep and rest so that the tissue can heal. They are not provided in order to return to normal activity and should not be used through the day. To do so or worsening pain at night can result from ongoing tissue damage and development of tolerance to the prescribed medicine. 6. Please allow 2-3 days to process refills. Prescriptions will not be mailed but must be picked up at the office. FOLLOW UP VISIT: Keep your scheduled follow-up appointment. Any questions, please call the office at . Current Hospital Diet Patient's current hospital diet: Regular Diet Discharge Diet Recommended Diet: Regular Diet Procedures Procedures Performed: L3-L5 Lumbar Laminectomy and Decompression, Posterior Spinal Fusion L3-L5, Bone Morphogenetic Protein;Applicaton of Lauren Pending Studies Studies pending at discharge: no Medical Emergencies . Who to Call and When: Medical Emergencies: If at any time you feel your situation is an emergency, please call 911 immediately. . Non-Emergent Contact Non-Emergency issues call your: Primary Care Provider . "Provider Documentation" section prepared by Cisco Almaraz. . VTE Core Measure Inpt VTE Proph given/why not?: Hans Abdalla, [facility]
--- NOTE | 2017-01-20 10:21 | PROGRESS NOTE ---
DATE: 01/20/2017 DATE: 01/20/2017. SUBJECTIVE: Postop day 2. Back pain controlled. Leg pain improved. Vital signs stable. T-max 36.7. ROCKY drained 100 mL. Bowel movement x1. Hematocrit 33.9. OBJECTIVE: On exam the patient has good strength to testing. Appears comfortable. ASSESSMENT: Status post lumbar decompression and fusion. PLAN: At this time, will continue with therapy today, advance his bowel regimen and anticipate home tomorrow.
--- NOTE | 2017-01-20 11:48 | Progress Note ---
Internal Med Progress Note Date of Service: January 20, 2017. Provider Documentation: SUBJECTIVE: Patient is doing well post operatively. Denies any chest pain, SOB, fever, chills, nausea, vomiting. Participating in PT well OBJECTIVE: Vital Signs-as noted below Gen: AAOX3, no distress Lungs: AEBE, no wheezing, rhonchi Heart: S1, S2 normal, Back: S/P Surgery, Drain + Ext: No edema Lab data as noted below. ASSESSMENT & PLAN: ASSESSMENT AND PLAN S/P LUMBAR DECOMPRESSION/ FUSION POD # [address] Almaraz Doing well postoperatively -Pain control, wound care, activity per ortho -Bowel regimen per ortho- on Senokot, Miralax to start tomorrow am, PRN dulcolax suppository -PT/ OT ACUTE BLOOD LOSS ANEMIA, Post operative status Hg 14.5 -> 10.9 -Due to surgical blood loss; EBL 800 mL -Asymptomatic -Monitor H/H HYPERTENSION BP is stable -Continue hydralazine, metoprolol succinate, nifedipine -Agree with holding metolazone to prevent dehydration ASTHMA Stable, not in exacerbation -Continue home inhalers DYSLIPIDEMIA -Continue statin DEPRESSION -Stable, continue Zoloft DVT PROPHYLAXIS -Per ortho DISPOSITION Per ortho Patient follows with Dr. Dawkins for primary care Vital Signs: Date Time Temp Pulse Resp B/P Pulse Ox O2 Delivery O2 Flow Rate FiO2 01/20/17 07:20 Room Air 01/20/17 06:59 36.7 58 16 148/65 93 Room Air 01/20/17 06:32 36.6 60 16 154/66 94 Room Air 01/19/17 23:01 37.0 70 18 132/76 91 Room Air 01/19/17 20:30 79 123/69 01/19/17 19:15 Room Air 01/19/17 16:10 Room Air 01/19/17 15:08 36.5 79 20 172/78 96 Room Air
[2017-01-20] MEDS: HYDROmorphone INJ 1 MG/ML SYR IV PRN (14:00)
[2017-01-20 16:14] VITALS: BP 159/87; PULSE 75; TEMP 36.6; O2SAT 93
[2017-01-20 20:59] VITALS: BP 154/66; PULSE 73
[2017-01-20] MEDS: METOPROLOL SUCC 50MG EXT REL TAB PO SCH (21:01)
[2017-01-20] MEDS: RANITIDINE HCL 150 MG TAB PO SCH (21:03)
[2017-01-20] MEDS: ATORVASTATIN 40 MG TAB PO SCH (21:03)
[2017-01-20] MEDS: DOCUSATE SODIUM/SENNA 50/8.6MG TAB PO SCH (21:03)
[2017-01-20 23:07] VITALS: BP 129/63; PULSE 66; TEMP 37.7; O2SAT 92
[2017-01-21] VITALS: TEMP 37.3
[2017-01-21] MEDS: OXYCODONE HCL IR 5 MG TAB (IMMEDIATE RELEASE) PO PRN ×2 (05:59→10:13)
[2017-01-21 06:31] VITALS: BP 144/74; TEMP 36.7; O2SAT 93
[2017-01-21 07:45] VITALS: BP 160/72; PULSE 69; TEMP 36.9; O2SAT 94
[2017-01-21 08:45] VITALS: O2SAT 94
[2017-01-21] MEDS: FLUTICASONE/SALMETEROL (ADVAIR) 500/50 INH 14 PUFF INH SCH (08:49)
[2017-01-21] MEDS: GABAPENTIN 300 MG CAP PO SCH (08:51)
[2017-01-21] MEDS: MIRABEGRON ER 25 MG TAB PO SCH (08:52)
[2017-01-21] MEDS: ROPINIROLE HCL 1 MG TAB PO SCH (08:52)
[2017-01-21] MEDS: SERTRALINE HCL 100 MG TAB PO SCH (08:52)
[2017-01-21] MEDS: NIFEdipine 30 MG CR TAB PO SCH (08:52)
[2017-01-21 09:52] VITALS: BP 160/72; PULSE 69; TEMP 36.9; O2SAT 94
--- NOTE | 2017-01-21 14:32 | DISCHARGE SUMMARY ---
PRINCIPAL DIAGNOSIS: Spinal stenosis. HOSPITAL COURSE FOLLOWS: On 01/18/2017 the patient underwent lumbar decompression and fusion, tolerated this well and taken to the orthopedic floor postoperatively. Postop day #1, he was up and ambulatory, progressed to postop day #2. On postop day #3, pain well controlled. ROCKY drain decreasing appropriately, subsequently discharged home. Discharge orders and instructions can be found on the chart for further review.
== END 2017-01-21 13:37 | disposition home or self-care (01) | DRG 460 ==
LOC: ENRESERVTM → ENRESERVDT → C.ACU 07:56 → C.3E 10:00
PROVIDERS: ADMIT Orthopaedic Surgery Orthopaedic Surgery of the Spine; ATTEND Orthopaedic Surgery Orthopaedic Surgery of the Spine
PROC: 0SG1071 Fusion of 2 or more Lumbar Vertebral Joints with Autologous Tissue Substitute, Posterior Approach, Posterior Column, Open Approach (ICD-10-PCS; principal; 2017-01-18 10:15)
DX: M48.06 Spinal stenosis, lumbar region (principal); D62 Acute posthemorrhagic anemia; M51.26 Other intervertebral disc displacement, lumbar region; F32.9 Major depressive disorder, single episode, unspecified; E78.5 Hyperlipidemia, unspecified; I10 Essential (primary) hypertension; I25.2 Old myocardial infarction; J45.909 Unspecified asthma, uncomplicated; Z86.73 Personal history of transient ischemic attack (TIA), and cerebral infarction without residual deficits

== ENCOUNTER 2020-07-09 11:18 | Observation (INO) ==
[2020-07-09] MEDS ORDERED: ASPIRIN CHEW 324 MG PO STA (11:27)
--- NOTE | 2020-07-09 11:41 | Emergency Department Note ---
Impression & Plan Angina pectoris, unstable, ACS (acute coronary syndrome), Abnormal ECG, Elevated troponin I level ED Provider Note NAME: DANIEL BRUNER JR AGE: 69 SEX: M : 1950 ARRIVES VIA: Walk-In INFORMANT: Patient, ED PROVIDER(S): Jay Chowdary DO CHIEF COMPLAINT: Chest pain HPI: The patient is a 69-year-old male who presented to the emergency department with chest pain. The patient has been having episodes of chest pain which are intermittent over the course of the last 3 weeks. He denies having any shortness of breath. He denies having any lower extremity pain. He does note some back pain. He denies having any abdominal pain but does note nausea when the chest pain worsens. The pain is sometimes worsened with exertion but can sometimes come at rest. The patient did have an echocardiogram on July 07. This did reveal an apical wall motion abnormality with hypokinesis of the segments. The patient was scheduled to follow-up with cardiology today. He was seen in the office and was felt to be very high risk given the patient's comorbidities and past medical history as well as his description of pain. He was also found to have an abnormal EKG. Attempts were made to make the patient a direct admit for further cardiac work-up but the patient was sent to the emergency department for further evaluation because of bed availability. The patient states that this time he has very mild pain which is in the retrosternal region. The pain worsens he does note radiation to the back and describes it as a pressure around his chest. The patient has noticed no black or bloody bowel movements. He notices no fever or cough. He said no exposure to COVID-19. ROS: See above HPI for pertinent positives & negatives. A total of 10 systems reviewed and were otherwise negative. PAST MEDICAL HISTORY: See Below PAST SURGICAL HISTORY: See Below FAMILY HISTORY: See Below SOCIAL HISTORY: See Below HOME MEDICATIONS: See Below ALLERGIES: See Below VITALS: See Below PHYSICAL EXAMINATION: GENERAL: Patient is awake alert in no acute distress patient is resting comfortably and showing no signs of anxiety EYES: The conjunctivae are clear. The pupils are round and reactive. EARS, NOSE, MOUTH AND THROAT: The nose is without any evidence of any deformity. NECK: The neck is nontender and supple. RESPIRATORY: Normal respiratory effort is noted there is no evidence of wheezing rhonchi or rales CARDIOVASCULAR: Regular rate and rhythm noted there no murmurs rubs or gallops normal S1 normal S2. GASTROINTESTINAL: The abdomen is soft. Abdomen is nontender. MUSCULOSKELETAL/EXTREMITIES: There is no evidence of gross deformity full range of motion is noted in the hips and shoulders. SKIN: There is no obvious evidence of any rash. Trace pedal edema was noted bilaterally NEUROLOGIC: Patient is awake alert and oriented x3 MEDICAL DECISION MAKING: The patient is a 69-year-old male who presented to the emergency department for an evaluation of chest pain. The patient was in the midst of a outpatient work- up for chest pain. Patient had an abnormal echocardiogram which showed regional wall motion abnormality. He was also found to have an abnormal EKG. He was following up with cardiology who was very concerned about the patient's condit ion and sent him to the emergency department for possible further evaluation as well as possible admission and treatment for acute coronary syndrome. The patient continued to have pain when he arrived at the emergency department but it was significantly improved compared to previous. He was treated with aspirin and started on heparin in the emergency department. Given the patient's EKG findings and ongoing pain I discussed his case with the on-call nurse informaticist. He does recommend that we proceed with preparation for cardiac catheterization. The patient was agreeable to this plan. I also discussed this case with the on-call [facility]ist. They have agreed to evaluate the patient in the emergency department or after the cardiac catheterization. Triage Nursing notes reviewed. Prior medical records reviewed Vital Signs: reviewed and remarkable for no significant abnormalities Differential diagnosis: Cardiac ischemia, aortic dissection, pulmonary embolism, pneumothorax, pneumonia, pericarditis, myocarditis, esophageal rupture, GERD, cholecystitis, pancreatitis, musculoskeletal, as well as other pathologies. ER treatment provided: See below Diagnostics interpreted by me: ECG: EKG was obtained in the emergency department. My interpretation is sinus rhythm at 62 bpm. PACs were noted. There was biphasic T waves noted in the anterior and lateral leads. This was compared to a tracing from November 20, 2015. The T wave abnormalities are new. This is likely consistent with ischemia. Cardiac Monitoring: An order was placed for continuous cardiac monitoring. The monitor shows a rate of 83 beats per minute with sinus rhythm. Laboratory studies: As stated above and show below. Imaging studies: See below Consultation(s): 1200: I discussed this case with Dr. Mercer. He will evaluate the patient in the emergency department. 1225: I discussed this case with Basilia who is on-call for the [facility] hospitalist group. ED COURSE: Procedures: none PDMP:reviewed and no issues Critical Care: I have personally spent greater than 35 minutes of critical care time in the direct management of this patient. This includes bedside care, interpretation of diagnostic studies, and testing, discussion with consultants, patient, and family members, and other required patient management activities. This 35 minutes is in excess of all separately billable procedures. Past Med/Surg History Medical History (Updated 07/09/20 @ 16:42 by Jay Chowdary DO) Asthma CAD (coronary artery disease) COPD (chronic obstructive pulmonary disease) Depression Depression with anxiety Diabetic neuropathy Diverticulosis Dyslipidemia Hypertension Lumbar stenosis with neurogenic claudication Mild aortic valve stenosis VEE (nonalcoholic steatohepatitis) RLS (restless legs syndrome) T2DM (type 2 diabetes mellitus) Valvular heart disease "01/2008 echo- LV EF 55-60%, LVH, minimal , mild AI, mild MR, mild TR " Surgical History H/O colonoscopy "11/2015 diverticulosis" Social History Smoking Status: Never smoker Do You Dip or Chew Tobacco: No; Hx Alcohol Use: No Hx Substance Use: No Preferred Language: Libyan Communication Ability: Effective 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 Beliefs That Will Affect Care: None Current Living Situation: Spouse Other Information That Helps Us Care for You: No Feels Safe at Home: Yes Safety Concerns: Feels Safe At This Time Assistive Devices: Glasses and Hearing Aid - Bilateral Allergies Allergies Allergy/AdvReac Type Severity Reaction Status Date / Time losartan Allergy Mild RASH Verified 07/09/20 13:01 hydrochlorothiazide Allergy Unknown Unknown Verified 07/09/20 13:01 lisinopril Allergy Unknown UNKNOWN Verified 07/09/20 13:01 Home Meds Home Medications Medication Instructions Recorded Confirmed albuterol sulfate [ProAir HFA] 2 puff INHALATION Q6H PRN 07/09/20 07/09/20 aspirin [Aspir-81] 81 mg PO DAILY 07/09/20 07/09/20 celecoxib 100 mg PO DAILY 07/09/20 07/09/20 diclofenac sodium 4 g TOPICAL QID 07/09/20 07/09/20 diphenoxylate-atropine [Lomotil] 1 tab PO BID PRN 07/09/20 07/09/20 fluticasone propion-salmeterol 1 inh INHALATION Q12H 07/09/20 07/09/20 [Advair Diskus] fluticasone propionate 1 spray INTRANASAL DAILY 07/09/20 07/09/20 gabapentin 100 mg PO TID 07/09/20 07/09/20 hydralazine 100 mg PO BID 07/09/20 07/09/20 melatonin 12 mg PO HS 07/09/20 07/09/20 metolazone 2.5 mg PO DAILY 07/09/20 07/09/20 montelukast 10 mg PO HS 07/09/20 07/09/20 multivitamin with minerals 1 tab PO DAILY 07/09/20 07/09/20 ropinirole 2 mg PO TID 07/09/20 07/09/20 sertraline 100 mg PO DAILY 07/09/20 07/09/20 sitagliptin [Januvia] 50 mg PO DAILY 07/09/20 07/09/20 tramadol 50 mg PO Q6H PRN 07/09/20 07/09/20 trazodone 50 mg PO HS 07/09/20 07/09/20 Results & Data (ED) Vital Signs Vital Signs - 24 hr 07/09/20 11:30 07/09/20 11:45 07/09/20 11:46 Temperature 36.4 C L Temperature Source Oral Pulse Rate 56 L 56 L Pulse Rate [Apical] Pulse Rhythm [Apical] Pulse Strength [Apical] Respiratory Rate 16 20 Respiratory Effort / Characteristics Non-Labored Spontaneous Respiratory Depth Normal Respiratory Pattern Blood Pressure 177/80 H Blood Pressure [Left Arm] Blood Pressure Mean 112 Blood Pressure Mean [Left Arm] Blood Pressure Position Sitting Blood Pressure Position [Left Arm] Pulse Oximetry 92 94 96 Oxygen Delivery Method Room Air Room Air Room Air Sepsis Recent Fever Within 48 Hours No Sepsis New/Unexplained Change in Mental Status N/A Sepsis Action Taken by Nursing No Action Required 07/09/20 11:48 07/09/20 12:27 07/09/20 15:40 Temperature Temperature Source Pulse Rate 66 Pulse Rate [Apical] 81 80 Pulse Rhythm [Apical] Regular Pulse Strength [Apical] Normal Respiratory Rate 20 17 18 Respiratory Effort / Characteristics Non-Labored Non-Labored Respiratory Depth Normal Normal Respiratory Pattern Regular Regular Blood Pressure 180/83 H Blood Pressure [Left Arm] 187/75 H 173/96 H Blood Pressure Mean 115 Blood Pressure Mean [Left Arm] 112 121 Blood Pressure Position Blood Pressure Position [Left Arm] Pulse Oximetry 96 93 91 Oxygen Delivery Method Room Air Room Air Room Air Sepsis Recent Fever Within 48 Hours Sepsis New/Unexplained Change in Mental Status Sepsis Action Taken by Nursing 07/09/20 15:55 07/09/20 16:12 Temperature 36.8 C Temperature Source Oral Pulse Rate Pulse Rate [Apical] 82 83 Pulse Rhythm [Apical] Regular Regular Pulse Strength [Apical] Normal Respiratory Rate 18 16 Respiratory Effort / Characteristics Non-Labored Non-Labored Spontaneous Respiratory Depth Normal Normal Respiratory Pattern Regular Regular Blood Pressure Blood Pressure [Left Arm] 173/96 H 137/88 Blood Pressure Mean Blood Pressure Mean [Left Arm] 121 104 Blood Pressure Position Blood Pressure Position [Left Arm] Lying Pulse Oximetry 91 96 Oxygen Delivery Method Room Air Room Air Sepsis Recent Fever Within 48 Hours Sepsis New/Unexplained Change in Mental Status Sepsis Action Taken by Prison Medications Current Medication List: was personally reviewed by me Laboratory Data Attestation: I reviewed the patient's lab results. Result diagrams: 07/09/20 11:40 07/09/20 11:40 Lab Results 07/09/20 07/09/20 07/09/20 Range/Units 11:34 11:34 11:40 WBC 6.21 (4.8-10.8) K/uL RBC 4.66 L (4.7-6.1) M/uL Hgb 12.6 L (14.0-18.0) g/dL Hct 40.1 L (42-52) % MCV 86.1 (80-100) fL MCH 27.0 (25-34) pg MCHC 31.4 L (32-36) g/dL RDW Std Deviation 52.4 H (36.4-46.3) fL RDW Coeff of Mariangel 16.5 H (11.5-14.5) % Plt Count 231 (130-400) K/uL MPV 10.0 (7.4-10.4) fL Immature Gran % (Auto) 0.3 % Neut % (Auto) 69.4 % Lymph % (Auto) 12.2 % [place] % (Auto) 13.0 % Eos % (Auto) 4.8 % Baso % (Auto) 0.3 % Neut # (Auto) 4.30 (1.4-6.5) K/uL Lymph # (Auto) 0.76 L (1.2-3.4) K/uL [place] # (Auto) 0.81 H (0.11-0.59) K/uL Eos # (Auto) 0.30 (0-0.5) K/uL Baso # (Auto) 0.02 (0-0.2) K/uL Immature Gran # (Auto) 0.02 (0.00-0.02) K/uL Absolute Nucleated RBC 0.13 H (0-0) K/uL Nucleated RBC % (auto) 2.1 % Hypochromasia Present PT (9.0-12.0) Seconds INR (0.9-1.1) APTT (21.0-31.0) Seconds PTT Ratio Sodium (136-145) mmol/L Potassium (3.5-5.1) mmol/L Chloride (98-107) mmol/L Carbon Dioxide (21-32) mmol/L Anion Gap (3-11) BUN (7-18) mg/dl Creatinine (0.6-1.4) mg/dl Est Cr Clr Drug Dosing ml/min Est GFR ( Amer) Est GFR (Non-Af Amer) BUN/Creatinine Ratio (10-20) Glucose (70-99) mg/dl Calcium (8.5-10.1) mg/dl Total Bilirubin (0.2-1) mg/dl AST (15-37) U/L ALT (12-78) U/L Alkaline Phosphatase (45-117) U/L Troponin I (0-0.045) ng/ml Total Protein (6.4-8.2) gm/dl Albumin (3.4-5.0) gm/dl Globulin (2.5-4.0) gm/dl Albumin/Globulin Ratio (0.9-2) Lipase (73-393) U/L COVID-19 Eval Order Covid19 IDNow atMWYC SARS-CoV-2, RNA, NAAT NEGATIVE (NEGATIVE) 07/09/20 07/09/20 Range/Units 11:40 11:40 WBC (4.8-10.8) K/uL RBC (4.7-6.1) M/uL Hgb (14.0-18.0) g/dL Hct (42-52) % MCV (80-100) fL MCH (25-34) pg MCHC (32-36) g/dL RDW Std Deviation (36.4-46.3) fL RDW Coeff of Mariangel (11.5-14.5) % Plt Count (130-400) K/uL MPV (7.4-10.4) fL Immature Gran % (Auto) % Neut % (Auto) % Lymph % (Auto) % [place] % (Auto) % Eos % (Auto) % Baso % (Auto) % Neut # (Auto) (1.4-6.5) K/uL Lymph # (Auto) (1.2-3.4) K/uL [place] # (Auto) (0.11-0.59) K/uL Eos # (Auto) (0-0.5) K/uL Baso # (Auto) (0-0.2) K/uL Immature Gran # (Auto) (0.00-0.02) K/uL Absolute Nucleated RBC (0-0) K/uL Nucleated RBC % (auto) % Hypochromasia PT 11.1 (9.0-12.0) Seconds INR 1.1 (0.9-1.1) APTT 24.9 (21.0-31.0) Seconds PTT Ratio 0.9 Sodium 139 (136-145) mmol/L Potassium 4.1 (3.5-5.1) mmol/L Chloride 106 (98-107) mmol/L Carbon Dioxide 29 (21-32) mmol/L Anion Gap 4.0 (3-11) BUN 16 (7-18) mg/dl Creatinine 1.12 (0.6-1.4) mg/dl Est Cr Clr Drug Dosing 79.1 ml/min Est GFR ( Amer) 77.8 Est GFR (Non-Af Amer) 67.1 BUN/Creatinine Ratio 13.8 (10-20) Glucose 131 H (70-99) mg/dl Calcium 9.8 (8.5-10.1) mg/dl Total Bilirubin 0.4 (0.2-1) mg/dl AST 44 H (15-37) U/L ALT 60 (12-78) U/L Alkaline Phosphatase 95 (45-117) U/L Troponin I 0.567 H* (0-0.045) ng/ml Total Protein 8.0 (6.4-8.2) gm/dl Albumin 3.3 L (3.4-5.0) gm/dl Globulin 4.7 H (2.5-4.0) gm/dl Albumin/Globulin Ratio 0.7 L (0.9-2) Lipase 129 (73-393) U/L COVID-19 Eval Order SARS-CoV-2, RNA, NAAT (NEGATIVE) Administered Medications Discontinued Medications Aspirin (Aspirin Chew 324 Mg) 324 mg PO NOW STA Stop: 07/09/20 11:28 Last Admin: 07/09/20 12:13 Dose: 324 mg Documented by: [id number] Aspirin (Aspirin 81 Mg Chew) Confirm Administered Dose 81 mg .ROUTE .STK-MED ONE Stop: 07/09/20 12:16 Last Admin: 07/09/20 16:30 Dose: Not Given Documented by: [id number] Clopidogrel Bisulfate (Clopidogrel Bisulfate 300 Mg Tab) Confirm Administered Dose 600 mg .ROUTE .STK-MED ONE Stop: 07/09/20 15:40 Last Admin: 07/09/20 15:40 Dose: 600 mg Documented by: [id number] Fentanyl Citrate (Fentanyl Citrate 100 Mcg/2 Ml Vial) Confirm Administered Dose 100 mcg .ROUTE .STK-MED ONE Stop: 07/09/20 14:21 Last Increment: 07/09/20 15:34 Dose: 25 mcg Documented by: [id number] Heparin Sodium (Porcine) (Heparin (Porcine) 1000 Unit/Ml 10 Ml (Matrix Worker Use Only)) Confirm Administered Dose 10,000 units .ROUTE .STK-MED ONE Stop: 07/09/20 14:21 Last Admin: 07/09/20 15:06 Dose: 10,000 units Documented by: [id number] Heparin Sodium (Porcine) (Heparin (Porcine) 1000 Unit/Ml 10 Ml (Matrix Worker Use Only)) Confirm Administered Dose 10,000 units .ROUTE .STK-MED ONE Stop: 07/09/20 15:29 Last Admin: 07/09/20 15:34 Dose: 4,000 units Documented by: [id number] Heparin Sodium/Dextrose (Heparin Iv Standard With Bolus) 1 ea IV NOW STA; Protocol Stop: 07/09/20 12:07 Last Admin: 07/09/20 16:31 Dose: Not Given Documented by: [id number] Heparin Sodium/Sodium Chloride (Heparin In Nss Infusion 1000 Unit/500 Ml (2 U/Ml) Bag) Confirm Administered Dose 3,000 units IV .STK-MED ONE Stop: 07/09/20 14:22 Last Admin: 07/09/20 14:40 Dose: 3,000 units Documented by: [id number] Heparin Sodium/Dextrose (Heparin Sodium/Dextrose) 25,000 units in 500 mls @ 32 mls/hr IV .[id number] [facility]; Protocol Stop: 08/08/20 12:14 Last Admin: 07/09/20 16:31 Dose: Not Given Documented by: [id number] Midazolam HCl (Midazolam Hcl 1 Mg/Ml 2ml Vial) Confirm Administered Dose 2 mg .ROUTE .STK-MED ONE Stop: 07/09/20 14:21 Last Increment: 07/09/20 15:34 Dose: 1 mg Documented by: [id number] Nicardipine HCl (Nicardipine Hcl Inj 2.5 Mg/Ml 10 Ml Amp) Confirm Administered Dose 25 mg .ROUTE .STK-MED ONE Stop: 07/09/20 14:21 Last Admin: 07/09/20 14:40 Dose: 25 mg Documented by: [id number] Nitroglycerin/Dextrose (Nitroglycerin/D5w 100mcg/Ml 20ml Syr) Confirm Adm inistered Dose 2,000 mcg .ROUTE .STK-MED ONE Stop: 07/09/20 14:22 Last Admin: 07/09/20 14:40 Dose: 2,000 mcg Documented by: [id number] Imaging Data Radiologist's Impression: Patient: DANIEL BRUNER JRAdmit Date: 07/09/20 MR#: [id number]: [id number] Acct ID:[id number]: Date: [address] Zip: [place] [address] Age: 69Location: ED Sex: MRoom/Bed: Att Phy:Diagnosis: CHEST PAIN Nela Phy: Naomi Veraervice Date: 07/09/20 [facility] Phy:Interpreting Phy: Chepe Presley MD Admit Phy: Ordering Phy: Jay Chowdary, DO cc: ~ XR chest 1V portable HISTORY: Atypical Chest Pain COMPARISON: Chest 01/09/2017. FINDINGS: The cardiac silhouette is mildly enlarged. There are bibasilar linear densities suggesting subsegmental atelectasis or scarring. This is similar to the prior study. No new focal lung consolidations to suggest pneumonia. No evidence for pulmonary edema. No pleural effusions. No pneumothorax. IMPRESSION: No significant change compared to the prior study. Stable cardiomegaly and bibasilar scarring/atelectasis. ACT 112: Negative or not required by law. Electronically signed by: Chepe Presley M.D. 07/09/2020 12:00 PM Dictated: 07/09/20 1158 Transcribed: 07/09/20 1158 Blood Pressure Blood Pressure Findings: Normal blood pressure Discharge Plan Visit Data Chief Complaint: Chest Pain Stated Complaint: CHEST PAIN ED Provider: Jay Chowdary Discharge Problem: Angina pectoris, unstable, ACS (acute coronary syndrome), Abnormal ECG, Elevated troponin I level Patient Disposition: Still a Patient Discharge Instructions Interventions: ED Discharge Assessment Last Done: 07/09/20 12:17
--- NOTE | 2020-07-09 12:01 | XRay Report ---
XR chest 1V portable HISTORY: Atypical Chest Pain COMPARISON: Chest 01/09/2017. FINDINGS: The cardiac silhouette is mildly enlarged. There are bibasilar linear densities suggesting subsegmental atelectasis or scarring. This is similar to the prior study. No new focal lung consolida tions to suggest pneumonia. No evidence for pulmonary edema. No pleural effusions. No pneumothorax. IMPRESSION: No significant change compared to the prior study. Stable cardiomegaly and bibasilar scarring/atelect asis. ACT 112: Negative or not required by law. Electronically signed by: Chepe Presley M.D. 07/09/2020 12:00 PM
[2020-07-09 12:03] LABS: INR 1.1 (0.9-1.1); Partial Thromboplastin Ratio 0.9; Partial Thromboplastin Time 24.9 Seconds (21.0-31.0); Prothrombin Time 11.1 Seconds (9.0-12.0)
[2020-07-09 12:08] LABS: Albumin Level 3.3 gm/dl (3.4-5.0); BUN Creatinine Ratio 13.8 (10-20); Calcium 9.8 mg/dl (8.5-10.1); Creatinine Clr Calc Pharmacy 79.1 ml/min; Est GFR (African American) 77.8; Est GFR (Non-African American) 67.1; Potassium 4.1 mmol/L (3.5-5.1)
[2020-07-09 12:14] LABS: Hematocrit (blood only) 40.1 % (42-52); Hemoglobin 12.6 g/dL (14.0-18.0); Mean Corpuscular Hgb Conc 31.4 g/dL (32-36); Mean Corpuscular Volume 86.1 fL (80-100); Nucleated RBC # (auto) 0.13 K/uL (0-0); Nucleated RBC % (auto) 2.1 %; Platelet Count 231 K/uL (130-400); RDW Coefficient of Variation 16.5 % (11.5-14.5); RDW Standard Deviation 52.4 fL (36.4-46.3); Red Blood Count 4.66 M/uL (4.7-6.1); White Blood Count 6.21 K/uL (4.8-10.8)
[2020-07-09 12:15] LABS: Basophils # (auto) 0.02 K/uL (0-0.2); Basophils % (auto) 0.3 %; Eosinophils % (auto) 4.8 %; Hypochromasia Present; Immature Granulocytes # (auto) 0.02 K/uL (0.00-0.02); Immature Granulocytes % (auto) 0.3 %; Lymphocytes # (auto) 0.76 K/uL (1.2-3.4); Lymphocytes % (auto) 12.2 %; Monocytes # (auto) 0.81 K/uL (0.11-0.59); Neutrophils % (auto) 69.4 %
[2020-07-09] MEDS ORDERED: ASPIRIN 81 MG CHEW ONE (12:15)
[2020-07-09] MEDS ORDERED: HEPARIN SODIUM/DEXTROSE 25,000 UNITS/500 ML BAG IV SCH (12:15)
[2020-07-09 12:29] LABS: Albumin Globulin Ratio 0.7 (0.9-2); Bilirubin,Total 0.4 mg/dl (0.2-1); Globulin 4.7 gm/dl (2.5-4.0); Troponin I 0.567 ng/ml (0-0.045)
[2020-07-09] MEDS ORDERED: niCARdipine HCL INJ 2.5 MG/ML 10 ML AMP ONE (14:20)
[2020-07-09] MEDS ORDERED: MIDAZOLAM HCL 1 MG/ML 2ML VIAL ONE (14:20)
[2020-07-09] MEDS ORDERED: HEPARIN (PORCINE) 1000 UNIT/ML 10 ML (CATH LAB USE ONLY) ONE ×2 (14:20→15:28)
[2020-07-09] MEDS ORDERED: fentaNYL citrate 100 MCG/2 ML VIAL ONE (14:20)
[2020-07-09] MEDS ORDERED: NITROGLYCERIN/D5W 100MCG/ML 20ML SYR ONE (14:21)
[2020-07-09] MEDS ORDERED: CLOPIDOGREL BISULFATE 300 MG TAB ONE (15:39)
--- NOTE | 2020-07-09 15:59 | Pre Anesthesia Assessment ---
Date of Service July 09, 2020 Pre Sedation Assessment Vital Signs Temp Pulse Pulse Resp BP BP Pulse Ox 07/09/20 15:55 82 18 173/96 H 91 07/09/20 15:40 80 18 173/96 H 91 07/09/20 12:27 81 17 187/75 H 93 07/09/20 11:48 66 20 180/83 H 96 07/09/20 11:46 96 07/09/20 11:45 56 L 20 94 07/09/20 11:30 97.5 F L 56 L 16 177/80 H 92 Cardiovascular RRR, no murmur, no edema Respiratory normal respiratory effort, lungs clear to auscultation Pre-Sedation Airway Assessment Smoking Status: Never smoker Short, Thick Neck: Yes Thyromental Distance: > or= 3.5 Finger Breadths Oral Cavity: + WNL Mallampati Class: III ASA: ASA3 NPO Status Date of Last Intake of Fluids: 07/08/20 Time of Last Intake of Fluids: 18:00 Date of Last Intake of Solid Food: 07/08/20 Time of Last Intake of Solid Foods: 18:00 Procedure Planning Contraindications for Sedation: none Current Medications Reviewed: Yes Notes The planned sedation has been discussed with the patient. Informed Consent was obtained. I have identified the patient, determined the appropriateness of sedation and have assessed the patient immediately prior to the procedure. All medicine(s) and interventions are by my order.
--- NOTE | 2020-07-09 16:01 | Post Anesthesia Assessment ---
Date of Service July 09, 2020 Post Sedation Assessment Vital Signs Temp Pulse Pulse Resp BP BP Pulse Ox 07/09/20 15:55 82 18 173/96 H 91 07/09/20 15:40 80 18 173/96 H 91 07/09/20 12:27 81 17 187/75 H 93 07/09/20 11:48 66 20 180/83 H 96 07/09/20 11:46 96 07/09/20 11:45 56 L 20 94 07/09/20 11:30 97.5 F L 56 L 16 177/80 H 92 Recovery Score Activity: Moves 4 extremities Respiration: Deep Breath/Cough Circulation: +/-20% PreAnes Value Consciousness: Fully Awake Oxygen Saturation: > 92% On Room Air Post Anesthesia Score: 10 Discharge Sedation Level of Care: Fast Track Phase II Post Sedation Plan On clinical assessment, the patient appears to have tolerated the sedation without complications. Patient is recovering as anticipated. Patient will continue to be monitored by nursing and may be discharged when sedation discharge criteria are met per below protocol. Upon Completions of procedure up to 15 minutes continue every 5 minute vital signs and the P.A.R. score; then discharge to a Phase I or Fast Track to Phase II per the following guidelines: * Discharge Patient to appropriate Phase II area if PAR is 8 or greater or return to pre- procedure baseline. The post - procedure orders will be as directed. * If PAR score is less than 8 or not return to pre-procedure baseline then patient will follow Phase I monitoring till PAR is reached for Phase II. The Phase I may be done in procedure room or may call to secure a Phase I area. * If naloxone or flumazenil are used for reversal, hold in Phase I for continu ed monitoring from when last reversal dose was given for a minimum of 60 minutes or longer pending the nurse and/or physician discretion of patient condition before discharge to Phase II. Please call the Sedation Physician to re-evaluate and complete post-note for discharge to Phase II area. Do NOT discharge from procedure sedation or Phase 1 until post- sedation evaluation note is complete by procedure /sedation MD Sedation Discharge Instructions to be given to the patient at discharge to home.
--- NOTE | 2020-07-09 16:02 | Cardiac Catheterization ---
[facility] Data: Purification Supervisor Cardiac Status Clinical evaluation leading to the procedure CAD Presenation: Non STEMI Anginal Classification: CCS IV Heart Failure: No Cardiogenic Shock within 24 Hours: No Cardiac Arrest within 24 Hours: No Imaging Studies Past 6 Months: Yes Stress Studies Past 6 Months: No Diagnostic Physicians Name: Koby Mercer MD Status: Elective Closure Device Percutaneous Entry Location: Radial Closure Device: Radial Band Recommendations: PCI without planned CABG PCI Indication: PCI for high risk Non-WHITNEY Lesion Segment Name: Mid LAD Culprit Artery: Yes Stenosis Prior to Rx (%): 80-90 Chronic Total Occlusion: No IVUS: No FFR: No Pre-Procedure KENYATTA Flow: 0 Previously Treated Lesion: No Lesion Complexity: Non-High/Non-C Lesion Length (mm): 12 Thrombus Present: No Bifurcation Lesion: No Guidewire Across Lesion: Stenosis Post-Procedure (%): 0 Post-Procedure KENYATTA Flow: 3 Devices(s) Deployed: Yes Yes Intraprocedure Events Significant Disection: No Perforation: No Cardiac Cath Procedure Full Procedure Date July 09, 2020 Pre-Procedure Diagnosis Pre-Procedure Diagnosis: Non STEMI AUC Score AUC Score: 8 Post-Procedure Diagnosis Post-Procedure Diagnosis: Severe CAD and Successful PCI Procedure(s) Performed Procedure(s) Performed: Coronary Angiography, Left Heart Cath and Drug Eluting Stent Mental Health Nurse Koby Mercer MD Hospitality Specialist(s) Johnathan Estimated Blood Loss Estimated Blood Loss: 15 Medication(s) Medication(s): Clopidogrel, Fentanyl, Heparin, Lidocaine 1%, Nicardipine, Nitroglycerin and Versed Summary of Findings Indication: NSTEMI Access: 6 Fr slender right radial artery Catheters: [place], diagnostic JL 3.5, EBU 3.5 guide Findings: LM -Short, almost separate ostium, luminal regularities LAD -large caliber, diffuse 30% proximal to mid disease across takeoff of first diagonal. 80 to 90% mid stenosis, distal vessel with luminal regularities as wraps around apex. Large first diagonal without significant disease Circumflex -large caliber, codominant, luminal irregularities. Large OM 2 without significant disease. Small left PDA with moderate diffuse disease RCA -small, codominant vessel, diffuse 50% mid segment disease. 99% acute ostial stenosis of medium caliber RV branch with KENYATTA I flow LVEDP -14 -- PCI -- Antithrombotic therapy: Heparin, clopidogrel Procedure: Left main cannulated with EBU 3.5 guide Solar Tech 50 wire passed across lesion into distal vessel Mid LAD lesion predilated with 2.5 compliant balloon Dilated lesion stented with 2.75 x 18 mm Bonifacio drug-eluting stent Stent post-dilated with 2.75 noncompliant balloon IC vasodilators administered for spasm Post procedure KENYATTA 3 flow, stent well expanded with minimal residual stenosis and no apparent cardiac complications. Arterial Closure: TR band Summary: 1. Multivessel coronary artery disease -80 to 90% mid LAD 50% mid RCA. 99% acute ostial medium RV branch Moderate diffuse left PDA disease 2. Normal intracardiac filling pressure 3. Successful PCI of mid LAD with single drug-eluting stent (2.75 x 18 mm [place]). Recommendations: To PCU for continued monitoring Loaded with clopidogrel 600 mg in Purification Supervisor Continue dual-antiplatelet therapy for at least 1 year Continue statin, and ASCVD risk factor modification Consult cardiac Rehab RV branch may be culprit for patient's acute rest symptoms additional medical management per Dr. May. Hemodynamics Rest Ao:: 107/52/73 Final Ao: 117/75/103 LV: 136/14 Recommendations Recommendations: PCI without planned CABG Specimens Specimens: None Radiation Exposure (mGy) 3538 Contrast (mls) 150 Fluids (cc crystalloids) Fluids (cc crystalloids): 74 Drains Drains: None Anesthesia Moderate Procedural Complication(s) None I attest to the content of the Intraoperative Record and any orders documented therein. Any exceptions are noted below. [facility] Card Cath Procedure Codes Cardiac Catheterization Procedure 1: Cardiovascular Cath Procedures: 25351 Coronaries and LHC (+/-LV) Moderate Sedation Procedure 1: Sedation/Anesthesia: 25959 Mod Sedation by the same physician;Init15 Min Child Age 5 & Up Procedure 2: Sedation/Anesthesia: 25977 Mod Sedation by the same physician; Ea [id number] Minutes Stenting Procedure 1: Cardiovascular Stent Procedures: 80962 Perc transcatheter placement of intracoronary stent(s), with ang PG Care Time/CCT Total # of Minutes Spent Total Time Spent with Patient: Total time spent is greater than 50% in coordination of care (as documented) at patient's floor/unit and/or counseling patient:
[2020-07-09] MEDS ORDERED: ONDANSETRON INJ 2 MG/ML 2 ML VIAL IV PRN ×2 (16:16→16:17)
[2020-07-09] MEDS ORDERED: DEXTROSE 50% 50 ML SYRINGE IV PRN (16:17)
[2020-07-09] MEDS ORDERED: MAGNESIUM HYDROXIDE SUSP 30 ML UDC PO PRN (16:17)
[2020-07-09] MEDS ORDERED: ALUMINUM/MAGNESIUM SUSP 30 ML UDC PO PRN (16:17)
[2020-07-09] MEDS ORDERED: CARBOHYDRATES FOR HYPOGLYCEMIA PO PRN (16:17)
[2020-07-09] MEDS ORDERED: POLYETHYLENE (MIRALAX) 17 GM PACK PO PRN (16:17)
[2020-07-09] MEDS ORDERED: GLUCAGON FOR INJ 1 MG VIAL SQ PRN (16:17)
[2020-07-09] MEDS ORDERED: GLUCOSE 10 TABS/TUBE PO PRN (16:17)
[2020-07-09] MEDS ORDERED: GLUCOSE 40% GEL 15 GM TUBE PO PRN (16:17)
[2020-07-09] MEDS ORDERED: ACETAMINOPHEN 325 MG TAB PO PRN (16:17)
[2020-07-09] MEDS ORDERED: SODIUM CHLORIDE 0.9% 1000ML 1,000 ML IV SCH (16:30)
--- NOTE | 2020-07-09 16:49 | Electrocardiogram Report ---
Test Reason : Blood Pressure : / mmHG Vent. Rate : 062 BPM Atrial Rate : 062 BPM P-R Int : 200 ms QRS Dur : 106 ms QT Int : 444 ms P-R-T Axes : 067 017 099 degrees QTc Int : 450 ms Sinus rhythm with marked sinus arrhythmia Cannot rule out Anterior infarct , age undetermined T wave abnormality, consider lateral ischemia Abnormal ECG When compared with ECG of 09-JAN-2017 16:53, Minimal criteria for Anterior infarct are now Present T wave inversion now evident in Anterolateral leads Confirmed by Koby Grady ([id number]) on 07/09/2020 4:48:42 PM Referred By: Confirmed By:Dannie Grady
[2020-07-09] MEDS ORDERED: traMADol HCL 50 MG TABLET PO PRN (16:58)
--- NOTE | 2020-07-09 17:07 | History & Physical Report ---
Date of Service July 09, 2020 Assessment & Plan (1) ACS (acute coronary syndrome): (2) CAD (coronary artery disease): This is a 69-year-old male who has significant past medical history of T2DM, diabetic neuropathy, HTN, HLD, CAD, COPD, PHILOMENA intolerant to CPAP, RLS, depression with anxiety, mild aortic valve stenosis who presents to ED secondary to chest pain x3 weeks. Pt with ecg changes, elevated troponin and CP concerning for unstable angina. Taken emergently to cardiac cath lab nurse. Pt found to house multivessel CAD. Cardiac cath summary per Dr. Mercer: "Multivessel coronary artery disease -80 to 90% mid LAD 50% mid RCA. 99% acute ostial medium RV branch Moderate diffuse left PDA disease 2. Normal intracardiac filling pressure 3. Successful PCI of mid LAD with single drug-eluting stent (2.75 x 18 mm [place])." Admit to PCU DAPT x 1 year with ASA and plavix add atorvastatin 40mg QHS and metoprolol tartrate 12.5mg bid, titrate accordingly consult cardiology Dr. May obtain echocardiogram cycle troponins fasting lipid panel in a.m consult brazing furnace feeder - pt with multiple risk factors including obesity, T2DM, HTN, PHILOMENA untreated encourage lifestyle modifications, diet and weight loss cardiac rehab consulted (3) T2DM (type 2 diabetes mellitus): A1c 7.1 on 07/02/2020 Hold Januvia NovoLog per protocol If BSG consistently greater than 150 add Lantus (4) Hypertension: BP curently controlled on hydralazine and metolazone as outpt hold metolazone, monitor renal fxn and re assess in a.m. Metoprolol tartrate 12.5mg bid ordered, titrate accordingly (5) Diabetic neuropathy: continue gabapentin (6) COPD (chronic obstructive pulmonary disease): continue Advair, prn albuterol no acute exac (7) PHILOMENA (obstructive sleep apnea): intolerant to CPAP (8) RLS (restless legs syndrome): continue requip (9) Depression with anxiety: continue zoloft mood stable (10) DVT prophylaxis: SCD/TEDS, loaded with plavix in cath lab nurse Disposition: admit to PCU Follow up: PCP Dr. Lujan upon discharge Pt was seen and examined in collaboration with Dr. Lawson, please see addendum Admission and Anticipated Discharge Date Admission Date: July 09, 2020 History of Present Illness Chief Complaint: Chest pain x3 weeks. Primary Care Provider: Mark Lujan MD This is a 69-year-old male who has significant past medical history of T2DM, diabetic neuropathy, HTN, HLD, CAD, COPD, PHILOMENA intolerant to CPAP, RLS, depression with anxiety, mild aortic valve stenosis who presents to ED secondary to chest pain x3 weeks. Of significance patient was seen and examined at cardiology clinic by Dr. Vance prior to arrival. Given concern for chest pain and EKG changes he was referred to ED for diagnostic cardiac catheterization given risk factors. On 08/03 patient did undergo echocardiogram which revealed EF 60 to 64%, small sized apical wall motion abnormality with hypokinesis, dilated ascending aorta 4.1 cm. In ED patient did have mild elevation of troponin to 0.567. He was started on IV heparin and transferred to [facility] where he underwent diagnostic cardiac cath by Dr. Mercer. He was found to have multivessel CAD, with 80-90% moderate LAD lesion. He did undergo PCI with SAMUEL to LAD. He was also found to have 50% mid RCA, 99% acute ostial, and diffuse left PDA disease. Currently he feels much improved. is at bedside. He denies fever, chills, sweats, lightheadedness, dizziness, chest pain, shortness of breath, cough, nausea, vomiting, abdominal pain. He denies any change in his bowel or urinary habits. Of significance he does have history of T2DM managed on Januvia. His last A1c on 07/02 was 7.1. Allergies Allergy/AdvReac Type Severity Reaction Status Date / Time losartan Allergy Mild RASH Verified 07/09/20 13:01 hydrochlorothiazide Allergy Unknown Unknown Verified 07/09/20 13:01 lisinopril Allergy Unknown UNKNOWN Verified 07/09/20 13:01 Home Medications Home Medications Medication Instructions Recorded Confirmed Type albuterol sulfate [ProAir HFA] 2 puff INHALATION Q6H PRN 07/09/20 07/09/20 History aspirin [Aspir-81] 81 mg PO DAILY 07/09/20 07/09/20 History celecoxib 100 mg PO DAILY 07/09/20 07/09/20 History diclofenac sodium 4 g TOPICAL QID 07/09/20 07/09/20 History diphenoxylate-atropine [Lomotil] 1 tab PO BID PRN 07/09/20 07/09/20 History fluticasone propion-salmeterol 1 inh INHALATION Q12H 07/09/20 07/09/20 History [Advair Diskus] fluticasone propionate 1 spray INTRANASAL DAILY 07/09/20 07/09/20 History gabapentin 100 mg PO TID 07/09/20 07/09/20 History hydralazine 100 mg PO BID 07/09/20 07/09/20 History melatonin 12 mg PO HS 07/09/20 07/09/20 History metolazone 2.5 mg PO DAILY 07/09/20 07/09/20 History montelukast 10 mg PO HS 07/09/20 07/09/20 History multivitamin with minerals 1 tab PO DAILY 07/09/20 07/09/20 History ropinirole 2 mg PO TID 07/09/20 07/09/20 History sertraline 100 mg PO DAILY 07/09/20 07/09/20 History sitagliptin [Januvia] 50 mg PO DAILY 07/09/20 07/09/20 History tramadol 50 mg PO Q6H PRN 07/09/20 07/09/20 History trazodone 50 mg PO HS 07/09/20 07/09/20 History Past Med/Surg History Medical History (Updated 07/09/20 @ 17:11 by Basilia Da Silva PA-C) Asthma CAD (coronary artery disease) COPD (chronic obstructive pulmonary disease) Depression Depression with anxiety Diabetic neuropathy Diverticulosis Dyslipidemia Hypertension Lumbar stenosis with neurogenic claudication Mild aortic valve stenosis VEE (nonalcoholic steatohepatitis) PHILOMENA (obstructive sleep apnea) RLS (restless legs syndrome) T2DM (type 2 diabetes mellitus) Valvular heart disease "01/2008 echo- LV EF 55-60%, LVH, minimal , mild AI, mild MR, mild TR " Surgical History (Updated 07/09/20 @ 17:05 by Basilia Da Silva PA-C) H/O colonoscopy "11/2015 diverticulosis" History of lumbar surgery Dr Almaraz, decomp/fusion History of total bilateral knee replacement Family History (Updated 07/09/20 @ 17:05 by Basilia Da Silva PA-C) Grandfather Diabetes Denies family history of Heart disease Social History Smoking Status: Never smoker Do You Dip or Chew Tobacco: No; Hx Alcohol Use: No Hx Substance Use: No Preferred Language: Arabic Communication Ability: Effective Manhole Builder Required: No Beliefs That Will Affect Care: None Current Living Situation: Spouse Other Information That Helps Us Care for You: No Feels Safe at Home: Yes Safety Concerns: Feels Safe At This Time Assistive Devices: None Review of Systems Review of Systems: All systems reviewed & are unremarkable except as noted in HPI & below Physical Exam Physical Exam: Constitutional: WD/WN, morbidly obese, male, vitals as above, NAD, sitting up in bed, pleasant, conversing easily Head: Normocephalic, Atraumatic Eyes: PERRL, conjunctivae normal, anicteric sclerae ENMT: external ear and nose normal, oropharynx normal Neck: trachea midline, no thyromegaly normal visual inspection Respiratory: normal respiratory effort, lungs clear to auscultation, no wheeze, rales, rhonchi. Normal insp/exp effort, no accessory muscle use Cardiovascular: RRR 2/6 DARYA noted throughout precordium, trace lower extremity edema Vessels: no JVD or carotid bruit Chest: normal inspection of chest, right radial band in place Abdomen: Protuberant abdomen, normal bowel sounds, soft, nontender, no hepatosplenomegaly Musculoskeletal: no cyanosis or clubbing, extremities motor strength 5/5 Skin: no rashes, warm and dry normal turgor Neurologic: PERRL, EOMI, accommodation nl, no face palsy, no dysarthria CN's II-XI intact bilaterally and moves all extremities Psychiatric: A+Ox3, euthymic affect Lymphatic: no cervical or axillary lymphadenopathy : deferred Results & Data Results & Data ([facility]) Vital Signs (Past 12 Hours) Vital Signs Temp Pulse Pulse Resp BP BP Pulse Ox 07/09/20 16:32 83 07/09/20 16:12 36.8 C 83 16 137/88 96 07/09/20 15:55 82 18 173/96 H 91 07/09/20 15:40 80 18 173/96 H 91 07/09/20 12:27 81 17 187/75 H 93 07/09/20 11:48 66 20 180/83 H 96 07/09/20 11:46 96 07/09/20 11:45 56 L 20 94 07/09/20 11:30 36.4 C L 56 L 16 177/80 H 92 Laboratory Results Short CBC 07/09/20 Range/Units 11:40 WBC 6.21 (4.8-10.8) K/uL Hgb 12.6 L (14.0-18.0) g/dL Hct 40.1 L (42-52) % Plt Count 231 (130-400) K/uL BMP 07/09/20 11:40 Sodium 139 Potassium 4.1 Chloride 106 Carbon Dioxide 29 BUN 16 Creatinine 1.12 Glucose 131 H Calcium 9.8 Cardiac Enzymes 07/09/20 Range/Units 11:40 Troponin I 0.567 H* (0-0.045) ng/ml Liver Function 07/09/20 Range/Units 11:40 Total Bilirubin 0.4 (0.2-1) mg/dl AST 44 H (15-37) U/L ALT 60 (12-78) U/L Alkaline Phosphatase 95 (45-117) U/L Albumin 3.3 L (3.4-5.0) gm/dl Diagnostic Findings CXR: IMPRESSION: No significant change compared to the prior study. Stable cardiomegaly and bibasilar scarring/atelectasis. Cardiac cath: -- PCI -- Antithrombotic therapy: Heparin, clopidogrel Procedure: Left main cannulated with EBU 3.5 guide Information Broker 50 wire passed across lesion into distal vessel Mid LAD lesion predilated with 2.5 compliant balloon Dilated lesion stented with 2.75 x 18 mm [place] drug-eluting stent Stent post-dilated with 2.75 noncompliant balloon IC vasodilators administered for spasm Post procedure KENYATTA 3 flow, stent well expanded with minimal residual stenosis and no apparent cardiac complications. Arterial Closure: TR band Summary: 1. Multivessel coronary artery disease -80 to 90% mid LAD 50% mid RCA. 99% acute ostial medium RV branch Moderate diffuse left PDA disease 2. Normal intracardiac filling pressure 3. Successful PCI of mid LAD with single drug-eluting stent (2.75 x 18 mm [place]). Medications Administered Discontinued Medications Aspirin (Aspirin Chew 324 Mg) 324 mg PO NOW STA Stop: 07/09/20 11:28 Last Admin: 07/09/20 12:13 Dose: 324 mg Documented by: [id number] Aspirin (Aspirin 81 Mg Chew) Confirm Administered Dose 81 mg .ROUTE .STK-MED ONE Stop: 07/09/20 12:16 Last Admin: 07/09/20 16:30 Dose: Not Given Documented by: [id number] Clopidogrel Bisulfate (Clopidogrel Bisulfate 300 Mg Tab) Confirm Administered Dose 600 mg .ROUTE .STK-MED ONE Stop: 07/09/20 15:40 Last Admin: 07/09/20 15:40 Dose: 600 mg Documented by: [id number] Fentanyl Citrate (Fentanyl Citrate 100 Mcg/2 Ml Vial) Confirm Administered Dose 100 mcg .ROUTE .STK-MED ONE Stop: 07/09/20 14:21 Last Increment: 07/09/20 15:34 Dose: 25 mcg Documented by: [id number] Heparin Sodium (Porcine) (Heparin (Porcine) 1000 Unit/Ml 10 Ml (Braider Setter Use Only)) Confirm Administered Dose 10,000 units .ROUTE .STTheJobPost-MED ONE Stop: 07/09/20 14:21 Last Admin: 07/09/20 15:06 Dose: 10,000 units Documented by: [id number] Heparin Sodium (Porcine) (Heparin (Porcine) 1000 Unit/Ml 10 Ml (Braider Setter Use Only)) Confirm Administered Dose 10,000 units .ROUTE .STTheJobPost-MED ONE Stop: 07/09/20 15:29 Last Admin: 07/09/20 15:34 Dose: 4,000 units Documented by: [id number] Heparin Sodium/Dextrose (Heparin Iv Standard With Bolus) 1 ea IV NOW STA; Protocol Stop: 07/09/20 12:07 Last Admin: 07/09/20 16:31 Dose: Not Given Documented by: [id number] Heparin Sodium/Sodium Chloride (Heparin In Nss Infusion 1000 Unit/500 Ml (2 U/Ml) Bag) Confirm Administered Dose 3,000 units IV .STK-MED ONE Stop: 07/09/20 14:22 Last Admin: 07/09/20 14:40 Dose: 3,000 units Documented by: [id number] Heparin Sodium/Dextrose (Heparin Sodium/Dextrose) 25,000 units in 500 mls @ 32 mls/hr IV .[id number] MARLEN; Protocol Stop: 08/08/20 12:14 Last Admin: 07/09/20 16:31 Dose: Not Given Documented by: [id number] Midazolam HCl (Midazolam Hcl 1 Mg/Ml 2ml Vial) Confirm Administered Dose 2 mg .ROUTE .STK-MED ONE Stop: 07/09/20 14:21 Last Increment: 07/09/20 15:34 Dose: 1 mg Documented by: [id number] Nicardipine HCl (Nicardipine Hcl Inj 2.5 Mg/Ml 10 Ml Amp) Confirm Administered Dose 25 mg .ROUTE .STK-MED ONE Stop: 07/09/20 14:21 Last Admin: 07/09/20 14:40 Dose: 25 mg Documented by: [id number] Nitroglycerin/Dextrose (Nitroglycerin/D5w 100mcg/Ml 20ml Syr) Confirm Administered Dose 2,000 mcg .ROUTE .STK-MED ONE Stop: 07/09/20 14:22 Last Admin: 07/09/20 14:40 Dose: 2,000 mcg Documented by: [id number] ECG Rate (beats per minute): 62 Findings: + T-wave inversion Additional Comments: anterorlateral t wave inversion Code Status & VTE Plan Code Status Full Code VTE Prophylaxis Plan VTE Prophylaxis will be ordered: Yes Supervising Physician Co-Signing Physician Notes Pt was seen and examined. Agreed with Basilia DE ANDA exam, assessment and plan. 69-year-old male with PMH of T2DM, diabetic neuropathy, HTN, HLD, CAD, COPD, PHILOMENA intolerant to CPAP, RLS, depression with anxiety, mild aortic valve stenosis who presents to ED with chest pain. Pt said that he was at his cardiology clinic today when he was sent to the ER for chest pain and abnormal EKG. Troponin on admission 0.56. He was started on IV heparin and transferred for emergent Braider Setter performed by dr. Mercer. Cardiac cath revealed multivessel CAD, with 80-90% mid LAD, 50% mid RCA. 99% acute ostial medium RV branch and moderate diffuse left PDA disease. S/P successful PCI of mid LAD with single drug-eluting stent. Currently pt said that he feels great. Denies any chest discomfort and SOB. IV heparin drip was discontinued. Starting on dual-antiplatelet therapy with aspirin and plavix for at least 1 year. Will add a low dose beta puma. Will check Lipid panel. cardiology consult. Will continue monitor closely in telemetry. MD Renny
[2020-07-09] MEDS ORDERED: ALBUTEROL HFA 8 GM INHALER INH PRN (17:12)
[2020-07-09] MEDS: INSULIN ASPART 100 UNITS/ML 3 ML PEN SC SCH ×2 (17:38→22:06)
[2020-07-09] MEDS ORDERED: MONTELUKAST SODIUM 10 MG TABLET PO SCH (21:00)
[2020-07-09] MEDS ORDERED: traZODone HCL 50 MG TAB PO SCH (21:00)
[2020-07-09] MEDS ORDERED: ATORVASTATIN 40 MG TAB PO SCH (21:00)
[2020-07-09] MEDS ORDERED: hydrALAZINE TAB 50 MG TAB PO SCH (21:00)
[2020-07-09] MEDS: METOPROLOL TARTRATE 25 MG TAB PO SCH (21:27)
[2020-07-09] MEDS: GABAPENTIN 100 MG CAP PO SCH (21:27)
[2020-07-09] MEDS: rOPINIRole HCL 1 MG TABLET PO SCH (21:28)
[2020-07-10 01:06] LABS: Hematocrit (blood only) 39.6 % (42-52); Hemoglobin 12.5 g/dL (14.0-18.0); Mean Corpuscular Hemoglobin 27.1 pg (25-34); Mean Corpuscular Hgb Conc 31.6 g/dL (32-36); Mean Corpuscular Volume 85.9 fL (80-100); Mean Platelet Volume 9.2 fL (7.4-10.4); Platelet Count 201 K/uL (130-400); RDW Coefficient of Variation 16.5 % (11.5-14.5); RDW Standard Deviation 51.9 fL (36.4-46.3); Red Blood Count 4.61 M/uL (4.7-6.1); White Blood Count 7.22 K/uL (4.8-10.8)
[2020-07-10 01:36] LABS: Albumin Level 3.1 gm/dl (3.4-5.0); BUN Creatinine Ratio 14.1 (10-20); Calcium 9.5 mg/dl (8.5-10.1); Creatinine Clr Calc Pharmacy 74.6 ml/min; Est GFR (African American) 72.3; Est GFR (Non-African American) 62.4; Magnesium 1.8 mg/dl (1.8-2.4); Potassium 3.8 mmol/L (3.5-5.1)
[2020-07-10 01:52] LABS: Albumin Globulin Ratio 0.8 (0.9-2); Bilirubin,Total 0.6 mg/dl (0.2-1); Globulin 4.1 gm/dl (2.5-4.0); Total Protein 7.2 gm/dl (6.4-8.2); Troponin I 0.833 ng/ml (0-0.045)
[2020-07-10] MEDS ORDERED: PERFLUTREN LIPID MICROSPHERE (DEFINITY) IV ONE (07:33)
[2020-07-10] MEDS: METOPROLOL TARTRATE 25 MG TAB PO SCH (08:24)
[2020-07-10] MEDS: GABAPENTIN 100 MG CAP PO SCH (08:27)
[2020-07-10] MEDS: rOPINIRole HCL 1 MG TABLET PO SCH (08:27)
[2020-07-10] MEDS: INSULIN ASPART 100 UNITS/ML 3 ML PEN SC SCH ×2 (08:34→12:34)
--- NOTE | 2020-07-10 08:52 | Cardiology Consultation ---
Date of Consultation July 10, 2020 Assessment & Plan (1) Angina pectoris, unstable: (2) PHILOMENA (obstructive sleep apnea): (3) Elevated troponin I level: (4) VEE (nonalcoholic steatohepatitis): (5) H/O colonoscopy: (6) COPD (chronic obstructive pulmonary disease): (7) Morbid obesity: Patient presented to our office on 07/09/2020 with complaints of unstable angina. Underwent cardiac catheterization on the fifth which revealed mid LAD stenosis with otherwise nonobstructive disease. Underwent successful PCI to the LAD and now states that he feels better than he has in years. Feels his energy has improved and denies any shortness of breath, palpitations or chest pain. Okay to discharge to home at this time on aspirin, Plavix. Would change metoprolol to metoprolol succinate 25 mg daily upon discharge. Also increase atorvastatin to 80 mg daily. Will need sleep medicine evaluation for very high likelihood of obstructive sleep apnea as an outpatient. We will also need to be arranged to follow with cardiac rehab. Follow-up with cardiology in 2 to 4 weeks. May consider repeat echocardiogram to follow-up on LAD distribution hypokinesis. Overall preserved LV systolic function. Mild aortic stenosis Okay to DC to home from a cardiac standpoint. History of Present Illness Reason for Consultation: Unstable angina Requesting Physician: Dr. Garcia Attending Physician: Hong Garcia MD History of Present Illness Mr. Arroyo presented to our outpatient cardiology practice on 07/09/2020 with complaints of 3 weeks of intermittent chest pain with severe episodes waxing and waning include an episode that awoke him from sleep. He also noted that he cannot sleep on his back because he stops breathing. Has gained 40 to 50 pounds over the last several years. At that time he was diagnosed with unstable angina and transferred to [facility] emergency department. He underwent urgent cardiac catheterization which revealed significant mid LAD disease and underwent successful PCI. Status post PCI today states he feels great. Has not felt this well in years. Allergies Allergy/AdvReac Type Severity Reaction Status Date / Time losartan Allergy Mild RASH Verified 07/09/20 13:01 hydrochlorothiazide Allergy Unknown Unknown Verified 07/09/20 13:01 lisinopril Allergy Unknown UNKNOWN Verified 07/09/20 13:01 Home Medications Home Medications Medication Instructions Recorded Confirmed Type albuterol sulfate [ProAir HFA] 2 puff INHALATION Q6H PRN 07/09/20 07/09/20 History aspirin [Aspir-81] 81 mg PO DAILY 07/09/20 07/09/20 History celecoxib 100 mg PO DAILY 07/09/20 07/09/20 History diclofenac sodium 4 g TOPICAL QID 07/09/20 07/09/20 History diphenoxylate-atropine [Lomotil] 1 tab PO BID PRN 07/09/20 07/09/20 History fluticasone propion-salmeterol 1 inh INHALATION Q12H 07/09/20 07/09/20 History [Advair Diskus] fluticasone propionate 1 spray INTRANASAL DAILY 07/09/20 07/09/20 History gabapentin 100 mg PO TID 07/09/20 07/09/20 History hydralazine 100 mg PO BID 07/09/20 07/09/20 History melatonin 12 mg PO HS 07/09/20 07/09/20 History metolazone 2.5 mg PO DAILY 07/09/20 07/09/20 History montelukast 10 mg PO HS 07/09/20 07/09/20 History multivitamin with minerals 1 tab PO DAILY 07/09/20 07/09/20 History ropinirole 2 mg PO TID 07/09/20 07/09/20 History sertraline 100 mg PO DAILY 07/09/20 07/09/20 History sitagliptin [Januvia] 50 mg PO DAILY 07/09/20 07/09/20 History tramadol 50 mg PO Q6H PRN 07/09/20 07/09/20 History trazodone 50 mg PO HS 07/09/20 07/09/20 History Patient History Medical History Asthma CAD (coronary artery disease) COPD (chronic obstructive pulmonary disease) Depression Depression with anxiety Diabetic neuropathy Diverticulosis Dyslipidemia Hypertension Lumbar stenosis with neurogenic claudication Mild aortic valve stenosis VEE (nonalcoholic steatohepatitis) PHILOMENA (obstructive sleep apnea) RLS (restless legs syndrome) T2DM (type 2 diabetes mellitus) Valvular heart disease "01/2008 echo- LV EF 55-60%, LVH, minimal , mild AI, mild MR, mild TR " Surgical History H/O colonoscopy "11/2015 diverticulosis" History of lumbar surgery Dr Almaraz, decomp/fusion History of total bilateral knee replacement Family History Grandfather Diabetes Denies family history of Heart disease Social History Smoking Status: Never smoker Do You Dip or Chew Tobacco: No; Hx Alcohol Use: No Hx Substance Use: No Preferred Language: Yemeni Communication Ability: Effective 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 No acute distress. Obese HEENT: Normocephalic, atraumatic. Pupils equal, round and reactive to light and accommodation. Extraocular muscles are intact. Anicteric sclera. Moist mucous membranes. Neck: No JVD. No bruit. Cardiovascular: Regular. Positive S-4. Normal S-1 and S-2. No S-3. No murmurs or rubs. Pulmonary: Clear to auscultation B/L. No rales, rhonchi or wheezing Abdomen: Bowel sounds x 4, soft. No rebound, guarding or tenderness. No organomegaly. Extremities: No clubbing, cyanosis or edema. +2 pedal pulses bilaterally. Skin: Warm and dry. Results & Data ([facility]) Vital Signs (Past 12 Hours) Vital Signs Temp Pulse Pulse Resp BP Pulse Ox 07/10/20 07:06 36.5 C 84 19 145/84 H 90 07/10/20 03:17 36.7 C 68 18 103/56 L 94 07/09/20 23:02 36.7 C 67 22 110/65 91 07/09/20 23:00 77 Diagnostic Findings Findings: LM -Short, almost separate ostium, luminal regularities LAD -large caliber, diffuse 30% proximal to mid disease across takeoff of first diagonal. 80 to 90% mid stenosis, distal vessel with luminal regularities as wraps around apex. Large first diagonal without significant disease Circumflex -large caliber, codominant, luminal irregularities. Large OM 2 without significant disease. Small left PDA with moderate diffuse disease RCA -small, codominant vessel, diffuse 50% mid segment disease. 99% acute ostial stenosis of medium caliber RV branch with KENYATTA I flow LVEDP -14 -- PCI -- Antithrombotic therapy: Heparin, clopidogrel Procedure: Left main cannulated with EBU 3.5 guide Machine Zipper Trimmer 50 wire passed across lesion into distal vessel Mid LAD lesion predilated with 2.5 compliant balloon Dilated lesion stented with 2.75 x 18 mm [place] drug-eluting stent Stent post-dilated with 2.75 noncompliant balloon IC vasodilators administered for spasm Post procedure KENYATTA 3 flow, stent well expanded with minimal residual stenosis and no apparent cardiac complications. Arterial Closure: TR band Summary: 1. Multivessel coronary artery disease -80 to 90% mid LAD 50% mid RCA. 99% acute ostial medium RV branch Moderate diffuse left PDA disease 2. Normal intracardiac filling pressure 3. Successful PCI of mid LAD with single drug-eluting stent (2.75 x 18 mm [place]).
[2020-07-10] MEDS ORDERED: FLUTICASONE PROPIONATE NA SPR 16 GM BTL SCH (09:00)
[2020-07-10] MEDS ORDERED: CLOPIDOGREL BISULFATE 75 MG TAB PO SCH (09:00)
[2020-07-10] MEDS ORDERED: ASPIRIN 81 MG ECTAB PO SCH (09:00)
[2020-07-10] MEDS ORDERED: FLUTICASONE/VILANTEROL 100/25MCG 14 PUFFS/INHALER INH SCH (09:00)
[2020-07-10] MEDS ORDERED: CEROVITE ADV FORMULA TAB PO SCH (09:00)
[2020-07-10] MEDS ORDERED: SERTRALINE HCL 100 MG TABLET PO SCH (09:00)
--- NOTE | 2020-07-10 12:20 | Hospitalist Progress Note ---
Date of Service July 10, 2020 Assessment & Plan (1) ACS (acute coronary syndrome): (2) CAD (coronary artery disease): Patient is a 69 yr male with H/O DM II, diabetic neuropathy, HTN, HLD, CAD, COPD, PHILOMENA intolerant to CPAP, RLS, depression with anxiety, mild aortic valve stenosis who presents to ED secondary to chest pain x3 weeks. Unstable Angina Multivessel coronary artery disease S/P successful PCI of mid LAD with single drug-eluting stent. --Cardiac Cath: Multivessel coronary artery disease 80 to 90% mid LAD. 50% mid RCA. 99% acute ostial medium RV branch. Moderate diffuse left PDA disease --ECHO: Moderate LVH, EF 55 to 60%. Mild hypokinesis of the apex and mid to api sharon anteroseptal díaz. Grade 1 diastolic dysfunction. Moderate calcified aortic valve with mild stenosis. Moderate mitral annular calcification with mild leaflet thickening. Continue aspirin, Plavix, Lipitor, metoprolol Appreciate cardiology input Appreciate cardiology input Needs follow-up with cardiology in 2 to 4 weeks Plan to increase atorvastatin to 80 mg daily (3) T2DM (type 2 diabetes mellitus): A1c 7.1 on 07/02/2020 Hold Januv[employer]thenas S.[employer]. NovoLog per protocol Monitor BGs (4) Hypertension: BP stable Resume hydralazine, metolazone Added Metoprolol (5) Diabetic neuropathy: continue gabapentin (6) COPD (chronic obstructive pulmonary disease): No signs of acute exacerbation Continue home inhalers (7) PHILOMENA (obstructive sleep apnea): Intolerant to CPAP (8) RLS (restless legs syndrome): continue requip (9) Depression with anxiety: continue zoloft mood stable (10) DVT prophylaxis: Admission and Anticipated Discharge Date Admission Date: July 09, 2020 Subjective Patient is seen and examined at bedside States feeling a lot better since having PCI Denies chest pain, shortness of breath, dizziness, nausea, abdominal pain Family at bedside Eager to get discharged Discussed with cardiology today Review of Systems Review of Systems: All systems reviewed & are unremarkable except as noted in HPI & below Physical Exam Physical Exam: Physical Exam: Vitals signs as noted above General Appearance:Obese, no apparent distress Head: normocephalic, Atraumatic Eyes: normal inspection, EOMI Neck: supple, Trachea midline Respiratory/Chest: Normal breath sounds, CTA Cardiovascular: S1, S2, No murmur Abdomen/GI:Soft, Non tender, Bowel sounds present Extremities/Musculoskelatal:normal inspection, 1+ B/L LE edema Neurologic/Psych:AAOX3, grossly no focal neurological deficits Skin: normal color, warm Results & Data Results & Data ([facility]) Vital Signs (Past 12 Hours) Vital Signs Temp Pulse Pulse Resp BP Pulse Ox 07/10/20 11:04 36.5 C 52 L 20 146/82 H 93 07/10/20 08:00 84 07/10/20 07:06 36.5 C 84 19 145/84 H 90 07/10/20 03:17 36.7 C 68 18 103/56 L 94 Laboratory Results Short CBC 07/10/20 Range/Units 00:48 WBC 7.22 (4.8-10.8) K/uL Hgb 12.5 L (14.0-18.0) g/dL Hct 39.6 L (42-52) % Plt Count 201 (130-400) K/uL BMP 07/10/20 07/10/20 00:48 00:48 Sodium Cancelled 138 Potassium Cancelled 3.8 Chloride Cancelled 103 Carbon Dioxide Cancelled 28 BUN Cancelled 17 Creatinine Cancelled 1.19 Glucose Cancelled 96 Calcium Cancelled 9.5 Cardiac Enzymes 07/09/20 07/09/20 07/10/20 Range/Units 11:40 19:32 00:48 Troponin I 0.567 H* 0.440 H* 0.833 H* (0-0.045) ng/ml Liver Function 07/09/20 07/10/20 07/10/20 Range/Units 11:40 00:48 00:48 Total Bilirubin 0.4 Cancelled 0.6 (0.2-1) mg/dl AST Cancelled 40 H ALT Cancelled 55 Alkaline Phosphatase 95 Cancelled 82 (45-117) U/L Albumin Cancelled 3.1 L
--- NOTE | 2020-07-10 13:07 | Discharge Summary ---
Date of Service July 10, 2020 Admission HPI Per Admitting Provider This is a 69-year-old male who has significant past medical history of T2DM, diabetic neuropathy, HTN, HLD, CAD, COPD, PHILOMENA intolerant to CPAP, RLS, depression with anxiety, mild aortic valve stenosis who presents to ED secondary to chest pain x3 weeks. Of significance patient was seen and examined at cardiology clinic by Dr. Vance prior to arrival. Given concern for chest pain and EKG changes he was referred to ED for diagnostic cardiac catheterization given risk factors. On 08/03 patient did undergo echocardiogram which revealed EF 60 to 64%, small sized apical wall motion abnormality with hypokinesis, dil ated ascending aorta 4.1 cm. In ED patient did have mild elevation of troponin to 0.567. He was started on IV heparin and transferred to [facility] where he underwent diagnostic cardiac cath by Dr. Mercer. He was found to have multivessel CAD, with 80-90% moderate LAD lesion. He did undergo PCI with SAMUEL to LAD. He was also found to have 50% mid RCA, 99% acute ostial, and diffuse left PDA disease. Currently he feels much improved. is at bedside. He denies fever, chills, sweats, lightheadedness, dizziness, chest pain, shortness of breath, cough, nausea, vomiting, abdominal pain. He denies any change in his bowel or urinary habits. Of significance he does have history of T2DM managed on Januvia. His last A1c on 07/02 was 7.1. Admission Exam Per Admitting Provider Physical Exam Physical Exam: Constitutional: WD/WN, morbidly obese, male, vitals as above, NAD, sitting up in bed, pleasant, conversing easily Head: Normocephalic, Atraumatic Eyes: PERRL, conjunctivae normal, anicteric sclerae ENMT: external ear and nose normal, oropharynx normal Neck: trachea midline, no thyromegaly normal visual inspection Respiratory: normal respiratory effort, lungs clear to auscultation, no wheeze, rales, rhonchi. Normal insp/exp effort, no accessory muscle use Cardiovascular: RRR 2/6 DARYA noted throughout precordium, trace lower extremity edema Vessels: no JVD or carotid bruit Chest: normal inspection of chest, right radial band in place Abdomen: Protuberant abdomen, normal bowel sounds, soft, nontender, no hepatosplenomegaly Musculoskeletal: no cyanosis or clubbing, extremities motor strength 5/5 Skin: no rashes, warm and dry normal turgor Neurologic: PERRL, EOMI, accommodation nl, no face palsy, no dysarthria CN's II-XI intact bilaterally and moves all extremities Psychiatric: A+Ox3, euthymic affect Lymphatic: no cervical or axillary lymphadenopathy : deferred Principal Diagnosis Unstable Angina Multivessel coronary artery disease Discharge Data Allergies Allergy/AdvReac Type Severity Reaction Status Date / Time losartan Allergy Mild RASH Verified 07/09/20 13:01 hydrochlorothiazide Allergy Unknown Unknown Verified 07/09/20 13:01 lisinopril Allergy Unknown UNKNOWN Verified 07/09/20 13:01 Consultations 07/09/20 12:24 Consult Cardiac Catheterization Stat ED Decision to Admit Stat 07/09/20 16:17 Consult Cardiology Routine 07/09/20 16:18 Consult Cardiac Rehabilitation Routine Procedures Performed Operation Date: 07/09/20 13:00 Actual Procedures p Cath, Left with Cors and Vent - Devaughn Mercer MD s Drug Eluting Stent SGl Vessel - Devaughn Mercer MD s Cineradiography w/Routine Exam - Devaughn Mercer MD --Cardiac Cath: Multivessel coronary artery disease 80 to 90% mid LAD. 50% mid RCA. 99% acute ostial medium RV branch. Moderate diffuse left PDA disease --ECHO: Moderate LVH, EF 55 to 60%. Mild hypokinesis of the apex and mid to apical anteroseptal díaz. Grade 1 diastolic dysfunction. Moderate calcified aortic valve with mild stenosis. Moderate mitral annular calcification with mild leaflet thickening. Ordered Studies 07/09/20 14:31 CL Cath Imgs for PACS use only Routine Hospital Course (1) ACS (acute coronary syndrome): (2) CAD (coronary artery disease): Patient is a 69 yr male with H/O DM II, diabetic neuropathy, HTN, HLD, CAD, COPD, PHILOMENA intolerant to CPAP, RLS, depression with anxiety, mild aortic valve stenosis who presents to ED secondary to chest pain x3 weeks. Unstable Angina Multivessel coronary artery disease S/P successful PCI of mid LAD with single drug-eluting stent. --Cardiac Cath: Multivessel coronary artery disease 80 to 90% mid LAD. 50% mid RCA. 99% acute ostial medium RV branch. Moderate diffuse left PDA disease --ECHO: Moderate LVH, EF 55 to 60%. Mild hypokinesis of the apex and mid to apical anteroseptal díaz. Grade 1 diastolic dysfunction. Moderate calcified aortic valve with mild stenosis. Moderate mitral annular calcification with mild leaflet thickening. Continue aspirin, Plavix, Lipitor, metoprolol Appreciate cardiology input Appreciate cardiology input Needs follow-up with cardiology in 2 to 4 weeks Plan to increase atorvastatin to 80 mg daily (3) T2DM (type 2 diabetes mellitus): A1c 7.1 on 07/02/2020 Hold Januvia NovoLog per protocol Monitor BGs (4) Hypertension: BP stable Resume hydralazine, metolazone Added Metoprolol (5) Diabetic neuropathy: continue gabapentin (6) COPD (chronic obstructive pulmonary disease): No signs of acute exacerbation Continue home inhalers (7) PHILOMENA (obstructive sleep apnea): Intolerant to CPAP (8) RLS (restless legs syndrome): continue requip (9) Depression with anxiety: continue zoloft mood stable (10) DVT prophylaxis: SCD/TEDS, loaded with plavix in labor standards director Disposition: admit to PCU Follow up: PCP Dr. Lujan upon discharge Pt was seen and examined in collaboration with Dr. Lawson, please see addendum Total Time Total Time Spent Total Time Spent (In Minutes): 40 minutes Total Time Includes: Examination of the Patient, Discharge Planning, Medication Reconciliation, Communication With Other Providers and Other Discharge Plan Discharge Items Patient Disposition: Home - Self-Care Reason For Visit: NSTEMI s/p PCI to LAD Discharge Diagnosis: Unstable Angina Multivessel coronary artery disease Activity: Per Instructions section Exercise/Sports: Wait until after follow-up appointment Non-emergency contact: Primary Care Provider and Survival Specialist Call non-emergency contact if: you have any medication questions, your symptoms worsen, your pain is not controlled, your pain is worsening, your pain is unusual for you, you have a fever, your wound has increased redness, your wound has increased drainage and your wound pain has increased Follow-up/Referrals: Mark Lujan MD [Primary Care Provider] - (Date & Time 07/14/2020 3:20 PM Provider Mark Lujan MD Department [facility] ) Chuy Vera [Non-Staff] - Diet: Carb Consistent or DM2 and Heart Healthy Addtl Attending Provider Instructions: Follow-up with your primary care physician Dr. Lujan on July 14, 2020 at 3:20 PM Follow-up with your ultrasound supervisor Dr. Vance in 2 to 4 weeks as advised by your ultrasound supervisor Seek immediate medical attention if your symptoms reoccur or worsen Home Care: * Take your medications exactly as directed. Don't skip doses. * Remember that recovery after a heart attack takes time. Plan to rest for at lease 4-8 weeks while you recover. Then return to normal activity when your doctor says it's okay. * Ask your doctor about joining a heart rehabilitation program. * Tell your doctor if you are feeling depressed. Feelings of sadness are common after a heart attack, but it is important that you speak to someone if you are feeling overwhelmed by these feelings. * If you are having chest pain, call 911 for an ambulance. Do NOT drive yourself to the hospital. * Ask your family members to learn CPR. * Learn to take your own blood pressure and pulse. Keep a record of your results. Ask your doctor when you should seek emergency medical attention. He or she will tell you which blood pressure reading is dangerous. Lifestyle Changes: * Maintain a healthy weight. Get help to lose any extra pounds. * Cut back on salt. * Limit canned, dried, packaged, and fast foods. * Don't add salt to your food. * Season foods with herbs instead of salt when you cook. * Break the smoking habit. Enroll in a stop-smoking program to improve your chances of success. * Limit fatty foods. * Ask your doctor about having your lipid levels checked regularly. * Build up your activity according to your doctor's recommendation. * Ask your doctor when it's okay to resume sexual activity. * Tell your doctor about any erectile dysfunction (ED) medication you are taking. Some ED medications are not safe if you take certain heart medications. * Try to manage stress. Follow Up: It is important for you to keep your follow up appointments with your medical provider. ACTIVITY RECOMMENDATIONS: Excess manipulation of the wrist should be avoided for the next 24-48 hours. * No lifting over 2 pounds (approximately a 1/2 gallon of milk) with the utilized arm for 24 hours. * No strenuous activity such as bowling or tennis for 3 days. * Keep the site of the procedure covered with a bandage for 24 hours. *You may shower the day after the procedure. Do not take a tub bath or submerge the puncture site in water for the next 3 days. *Do not operate any motorized equipment for 3 days. SPECIAL CARE INSTRUCTIONS: The site may be slightly bruised and sore following your procedure. Should any of the following occur, contact the Dr. who performed your procedure. 1. Redness/inflammation, swelling, chills, or fever, or colored drainage at procedure site within 3-7 days after your procedure. 2. Coldness, discoloration, ongoing numbness, severe pain, or swelling. Expect mild tingling of hand and tenderness at the puncture site for up to three days. If this persists beyond three days, or other symptoms develop, notify the Dr. who performed your procedure. BLEEDING: If the procedure site on your wrist begins to bleed, do not panic 1. Place 1 or 2 fingers firmly just slightly above the insertion site to stop the bleeding. You may be able to feel your pulse as you hold pressure. 2. Lift your finger after 5 minutes to see if the bleeding has stopped. 3. Once the bleeding has stopped, gently wipe the wrist area clean with a bandage. * If the bleeding from your wrist does not stop after 10 minutes, or if there is a large amount of bleeding or spurting, call 911 (do not drive yourself to the hospital). SKIN IRRITATION: * You may experience some redness and/or swelling in the area where radiation was administered. If any skin irritation occurs, please contact your family physician. FOLLOW UP VISIT: Keep any scheduled doctor appointments. Pending Studies at Discharge: No Stand-Alone Forms: [facility] [employer], Smoking Cessation Medications and DC Order Prescriptions: New clopidogrel 75 mg Tablet 75 mg PO QAM Qty: 30 RF: 2 metoprolol succinate 25 mg tablet extended release 24 hr 25 mg PO DAILY Qty: 30 RF: 2 atorvastatin [Lipitor] 80 mg tablet 80 mg PO DAILY Qty: 30 RF: 2 Continued diphenoxylate-atropine [Lomotil] 2.5-0.025 mg Tablet 1 tab PO BID PRN (Reason: Diarrhea) RF: 0 tramadol 50 mg Tablet 50 mg PO Q6H PRN (Reason: Pain) RF: 0 fluticasone propionate 50 mcg/actuation [place],Suspension 1 spray INTRANASAL DAILY RF: 0 gabapentin 100 mg capsule 100 mg PO TID RF: 0 metolazone 2.5 mg Tablet 2.5 mg PO DAILY RF: 0 trazodone 50 mg Tablet 50 mg PO HS RF: 0 ropinirole 2 mg Tablet 2 mg PO TID RF: 0 fluticasone propion-salmeterol [Advair Diskus] 500-50 mcg/dose Blister With Device 1 inh INHALATION Q12H RF: 0 montelukast 10 mg Tablet 10 mg PO HS RF: 0 hydralazine 50 mg Tablet 100 mg PO BID RF: 0 multivitamin with minerals Tablet 1 tab PO DAILY RF: 0 albuterol sulfate [ProAir HFA] 90 mcg/actuation Hfa Aerosol Inhaler 2 puff INHALATION Q6H PRN (Reason: SOB) RF: 0 sertraline 50 mg Tablet 100 mg PO DAILY RF: 0 melatonin 3 mg Tablet Extended Release 12 mg PO HS RF: 0 Januvia 50 mg Tablet 50 mg PO DAILY RF: 0 diclofenac sodium 1 % Gel 4 g TOPICAL QID RF: 0 aspirin 81 mg Tablet,Delayed Release (Dr/Ec) 81 mg PO DAILY Qty: 30 RF: 2 Discontinued celecoxib 100 mg Capsule 100 mg PO DAILY RF: 0 Discharge Orders: Discharge Order (Routine); Ordered 07/10/20 Ordered By: Hong Campa/Other Patient Handouts: 2019-nCoV, High Blood Sugar (Hyperglycemia), Hypoglycemia (Low Blood Sugar), Managing Type 2 Diabetes, Diabetes: Meal Planning Admission Data Admit Date/Time: 07/09/20 16:16 Attending Provider: Hong Garcia Admit Provider: Karol Lawson Primary Care Provider: Mark Lujan Other Providers: Devaughn Mercer ; Karol Lawson ; Claudio May Other Interventions: Discharge Summary Assessment (RN) Last Done: 07/10/20 13:08
--- NOTE | 2020-07-10 18:14 | Electrocardiogram Report ---
Test Reason : Blood Pressure : / mmHG Vent. Rate : 074 BPM Atrial Rate : 074 BPM P-R Int : 198 ms QRS Dur : 104 ms QT Int : 368 ms P-R-T Axes : 071 014 079 degrees QTc Int : 408 ms Sinus rhythm with Premature supraventricular complexes Inferior infarct (cited on or before 09-JUL-2020) Abnormal ECG When compared with ECG of 09-JUL-2020 11:30, Premature supraventricular complexes are now Present Nonspecific T wave abnormality has replaced inverted T waves in Anterior leads Confirmed by Koby Grady ([id number]) on 07/10/2020 6:14:45 PM Referred By: Tang Vance Confirmed By:Dannie Grady
[2020-07-10] MEDS ORDERED: HEPARIN SOD 5,000 UNIT/0.5 ML VIAL SQ SCH (21:00)
== END 2020-07-10 13:50 | disposition home or self-care (01) ==
LOC: ED 11:18 → CC 12:17 → 2S 16:16 → SUATTDRO 16:16 → INTOOBSV 16:16